=== PATIENT | female | born 1960 | race Caucasian/White ===

== ENCOUNTER 2020-01-20 13:12 | Emergency (ER) | payer BC, OTHER, SELFPAY ==
[2020-01-20 13:50] VITALS: BP 160/81; PULSE 100; RESP 18; TEMP 36.8; O2SAT 98; BMI 28.7
--- NOTE | 2020-01-20 14:14 | ED.HA ---
HPI - Headache General Chief Complaint: Headache Stated Complaint: Migraine Time Seen by Provider: 01/20/20 14:14 Source: patient Mode of arrival: ambulatory Limitations: no limitations History of Present Illness HPI Narrative: 59-year-old female with history of eosinophilic fasciitis, vulvar lichen sclerosus and surgical history of radical nephrectomy on left side, bladder up lift, hip replacement, tubal ligation who is currently receiving IVIG for eosinophilic fasciitis being followed by Dr. Rich at and since she has been getting the IV IG she over the past 4 months has been experiencing headaches about 2-3 days after receiving IVIG and will get intermittent episodes she was prescribed sumatriptan for this but most the time she reports that does not work. States this episode is a gradual-onset had her IV IG about 4 days ago and started experiencing the headache yesterday described as pressure-like diffuse similar to her previous. No sudden or thunderclap headache. Actually this is not the worst episode she has had she had a debilitating headache back in September she reports. States this is not as worse but just exhausted we getting headaches after IVIG and at this point is reconsidering getting IVIG anymore. She denies any fever or chills. No neck pain. No vision changes. No lightheadedness or dizziness. MD elicited complaint: headache Onset (ago): day(s) Onset description: gradually Location: diffuse Severity: moderate Quality & Timing: aching Exacerbating factors: none Relieving factors: nothing Context: occurred at rest Treatments prior to arrival: other ( Sometimes the sumatriptan will work) Related Data Allergies Allergy/AdvReac Type Severity Reaction Status Date / Time codeine [CODEINE] Allergy Unknown Unknown Verified 01/20/20 14:29 Review of Systems Review of Systems: Constitutional: No Weight loss, No Fever, No Chills, No Night Sweats, No Fatigue, No Malaise ENT/Mouth: No Hearing loss, No Ear Pain, No Nasal Congestion, No Sinus Pain, No Hoarseness, No sore throat, No Rhinorrhea, No Swallowing Difficulty Eyes: No Eye Pain, No Swelling, No Redness, No Foreign Body, No Discharge, No Vision Changes Cardiovascular: No Chest Pain, No SOB, No Dyspnea on Exertion, No Orthopnea, No Edema, No Palpitations Respiratory: No Cough, No Sputum, No Wheezing, No Dyspnea Gastrointestinal: No Nausea, No Vomiting, No Diarrhea, No Constipation, No abdominal Pain, No Hematochezia, No Melena Genitourinary: no irregular bleeding, No Dysuria, No Urinary Frequency, No Hematuria, No Urinary Incontinence, No Urgency, No Flank Pain, No Urinary Flow Changes, No Hesitancy Musculoskeletal: No joint pain, No Myalgias, No Joint Swelling Skin: No Skin Lesions, No rash Neuro: No Weakness, No Numbness, No Paresthesias, No Loss of Consciousness, No Dizziness, + DUBOSE as noted Psych: No Anxiety/Panic, No Depression Heme/Lymph: No Bruising, No Bleeding,No Lymphadenopathy Endocrine: No Polyuria, No Polydipsia, No Temperature Intolerance Yes all other systems are reviewed and are negative [facility] Past Medical History Attestation statement: The following information was validated with the patient. Medical History Eosinophilic fasciitis Vulval intraepithelial neoplasia with lichen sclerosus Surgical History History of bladder suspension procedure History of hip replacement History of nephrectomy Social History Social History Alcohol intake: never Smoking Status: Never smoker Use of substances other than those prescribed or required for medical reasons: No Advance Directives: No Advance Directives Information Provided: Yes Physical Exam Vital Signs: Vital Signs: Last Vital Signs Temp 98.2 F 01/20/20 14:52 Pulse 91 01/20/20 14:52 Resp 18 01/20/20 14:52 BP 139/76 01/20/20 14:52 Pulse Ox 96 01/20/20 14:52 Body Mass Index 28.7 Reviewed Const: General: cooperative and healthy appearing; No acute distress or intoxicated appearing Nutritional Appearance: average body habitus Orientation/consciousness: patient oriented x3 HENMT: Head: Yes normal to inspection Ears: hearing grossly normal bilaterally Eyes: General: appearance normal, both eyes and all related structures Visual Valerio: normal visual valerio by confrontation Neck: Neck: Yes normal visual inspection, No positive Brudzinski's sign, No positive Kernig's sign and No tender Thyroid: Thyroid normal Chest: Chest palpation & inspection: normal inspection of the chest Resp: Effort & Inspection: normal respiratory effort Cardio: Jugular venous distension: no JVD GI: Inspection: Yes normal to inspection Percussion: Yes normal to percussion Auscultation: normal bowel sounds : General: Yes no CVA tenderness Back/Spine/Pelvis: Back: no CVA tenderness Skin: General skin exam: no rashes or lesions noted Neuro: Other: negative on stroke scale NIH score 0 General: patient oriented x3 Cranial nerves: Yes CN's II-XII intact bilaterally Cognition (Neuro): normal cognition Gait exam (Neuro): Normal gait present Motor exam (neuro): 5/5 motor strength present throughout Left pupil size: 0.79 in Right pupil size: 0.79 in Extrem: General: Yes normal to inspection Course Course Course Narrative: 1630 feels much better states her headache has fully resolved She was able to sleep in the ED. No headache at this time. Smiling and thankful. She has been on her phone for last few minutes. Out of bed ambulatory status with gait. Patient will be discharged with clear return follow-up instructions. Stable for discharge MDM - Headache MDM Narrative Medical decision making narrative: patient likely spacing common side effects of IVIG has been happening ever since IV IG and September prior to that she was doing well with that but now every time she gets IVIG she will experience a headache about 3 days later which is typical for today's visit and today's visit is not the worst ever. She is able to smile while presenting history to me does not appear toxic. Hemodynamically stable. At this time will check basic labs and treat with IV fluids, IV Benadryl and Reglan / Toradol. Differential Diagnosis Differential diagnosis: Likely migraine, tension headache and headache; Unlikely subarachnoid hemorrhage, meningitis, sinusitis and postconcussion syndrome Lab Data Result diagrams: 01/20/20 14:22 01/20/20 14:22 Labs: Lab Results 01/20/20 01/20/20 01/20/20 Range/Units 14:22 14:22 14:37 WBC 6.4 (4.8-10.8) X10*3/uL RBC 4.09 L (4.20-5.50) X10*6/uL Hgb 12.2 (12.0-16.0) g/dl Hct 36.2 L (37-47) % MCV 88.5 (80-98) fL MCH 29.8 (27.0-33.0) pg MCHC 33.7 (31.0-35.0) g/dl RDW 12.8 (11.0-16.0) % Plt Count 247 (160-400) X10*3/uL MPV 9.2 L (9.4-12.3) fL Immature Gran % (Auto) 0.2 (0.0-0.4) % Neut % (Auto) 75.2 H (45-73) % Lymph % (Auto) 15.0 L (20-40) % [place] % (Auto) 8.9 (2-11) % Eos % (Auto) 0.2 (0-4) % Baso % (Auto) 0.5 (0-2) % Lymph # (Auto) 1.0 L (1.2-4.9) X10*3/uL [place] # (Auto) 0.6 (0.1-1.2) X10*3/uL Eos # (Auto) 0.0 (0.0-0.4) X10*3/uL Baso # (Auto) 0.0 (0.0-0.2) X10*3/uL Abs Immat Gran (auto) 0.01 (0.00-0.03) X10*3/uL Absolute Neuts (auto) 4.8 (2.0-8.3) X10*3/uL Absolute Nucleated RBC 0.000 (0.0-0.012) X10*3/uL Nucleated RBC % (auto) 0.0 (0.0-0.2) /100WBC Sodium 133 L (135-145) mmol/L Potassium 3.9 (3.3-5.1) mmol/l Chloride 101 (96-108) mmol/L Carbon Dioxide 22 (22-29) mmol/L Anion Gap 14 (12-20) BUN 9 (9-16) mg/dL Creatinine 0.62 (0.5-1.4) mg/dL Estim Creat Clear Calc 91.5 Estimated GFR > 60 Random Glucose 108 (60-115) mg/dL Calcium 9.3 (8.4-10.2) mg/dL Total Bilirubin 0.7 (0.0-1.0) mg/dL AST 19 (5-31) U/L ALT 17 (0-31) U/L Alkaline Phosphatase 65 (39-117) U/L Total Protein 9.0 H (6.5-8.0) g/dL Albumin 4.2 (3.5-5.0) g/dL Urine Color STRAW Urine Appearance CLEAR Urine pH 7.0 (5.0-8.0) Ur Specific [place] <= 1.005 (1.005-1.025) Urine Protein NEG (NEG-TRACE) MG/DL Urine Glucose (UA) NEG (NEG) MG/DL Urine Ketones NEG (NEG) MG/DL Urine Blood TRACE (NEG) Urine Nitrite NEG (NEG) Ur Leukocyte Esterase NEG (NEG) Urine RBC 0-2 (0) /HPF Urine WBC 0 (0-4) /HPF Ur Squamous Epith Cells NONE /LPF Urine Bacteria NONE /LPF Discharge Plan Discharge Clinical Impression: Headache Qualifiers: Headache type: tension-type Headache chronicity pattern: chronic headache Intractability: not intractable Qualified Code(s): G44.229 - Chronic tension-type headache, not intractable Patient Disposition: Home, Self-Care Instructions: Acute Headache (ED) Additional Instructions: please follow-up outpatient as discussed Return if any concerns or worsening symptoms Thank you Referrals: Oswaldo Lynch MD [Primary Care Provider] - 3 days
[2020-01-20 14:28] LABS: Basophils Percent Auto 0.5 % (0-2); Eosinophils Percent Auto 0.2 % (0-4); Hematocrit 36.2 % (37-47); Hemoglobin 12.2 g/dl (12.0-16.0); Imm Gran Abs Auto 0.01 X10*3/uL (0.00-0.03); Imm Gran Pct Auto 0.2 % (0.0-0.4); Mean Corpuscular HGB Conc 33.7 g/dl (31.0-35.0); Mean Corpuscular Hemoglobin 29.8 pg (27.0-33.0); Mean Corpuscular Volume 88.5 fL (80-98); Mean Platelet Volume 9.2 fL (9.4-12.3); Monocytes Absolute Auto 0.6 X10*3/uL (0.1-1.2); Monocytes Percent Auto 8.9 % (2-11); Neutrophils Absolute Auto 4.8 X10*3/uL (2.0-8.3); Neutrophils Percent Auto 75.2 % (45-73); Platelet Count 247 X10*3/uL (160-400); Red Blood Count 4.09 X10*6/uL (4.20-5.50); Red Cell Distribution Width 12.8 % (11.0-16.0); White Blood Count 6.4 X10*3/uL (4.8-10.8)
[2020-01-20 14:29] LABS: MANUAL DIFF FLAG NO
[2020-01-20] MEDS: Ketorolac Tromethamine 30 MG/ML VIAL IVPUSH (14:30)
[2020-01-20] MEDS: diphenhydrAMINE HCL 50 MG/ML VIAL IVPUSH (14:30)
[2020-01-20] MEDS: 0.9 % Sodium Chloride 1,000 ML 1000 ML IV (14:30)
[2020-01-20] MEDS: Metoclopramide HCl 10 MG/2 ML VIAL IVPUSH (14:30)
[2020-01-20 14:42] LABS: Glucose Urine UA NEG (NEG); Leukocyte Esterase Urine NEG (NEG); Nitrite Urine NEG (NEG); Specific Gravity - Urine <= 1.005 (1.005-1.025); Urine Blood TRACE (NEG); Urine Ketones NEG (NEG); Urine Protein NEG (NEG-TRACE)
[2020-01-20 14:43] LABS: Appearance Urine CLEAR; Color Urine STRAW
[2020-01-20 14:50] LABS: RBC Urine 0-2 /HPF (0); WBC Urine 0 /HPF (0-4)
[2020-01-20 14:52] VITALS: BP 139/76; PULSE 91; RESP 18; TEMP 36.8; O2SAT 96
[2020-01-20 14:57] LABS: Alanine Aminotransferase 17 U/L (0-31); Albumin Level 4.2 g/dL (3.5-5.0); Alkaline Phosphatase 65 U/L (39-117); Anion Gap 14 (12-20); Aspartate Amino Transferase 19 U/L (5-31); Bilirubin Total 0.7 mg/dL (0.0-1.0); Blood Urea Nitrogen 9 mg/dL (9-16); Calcium 9.3 mg/dL (8.4-10.2); Carbon Dioxide 22 mmol/L (22-29); Chloride 101 mmol/L (96-108); Creatinine Clr Calc Pharmacy 91.5; Estimated Glomerular Filt Rate > 60; Glucose Random 108 mg/dL (60-115); Potassium 3.9 mmol/l (3.3-5.1); Sodium 133 mmol/L (135-145)
--- NOTE | 2020-01-20 15:24 | PC.NURSE ---
introduced self to pt, reporting headache 5/10, with some ongoing nausea. sleeping on arrival into room. speaking in clear full sentences, resp even and nonlaboured. fluids still running. has reached pain goal.
== END 2020-01-20 17:00 | disposition home or self-care (01) ==
PROVIDERS: Nurse Practitioner Primary Care; Emergency Provider Emergency Medicine; PCP Internal Medicine
DX: G44.229 Chronic tension-type headache, not intractable (principal); Z79.899 Other long term (current) drug therapy
CPT/HCPCS: 36415; 80053; 81001; 85025; 96361; 96374; 96375; 99284; J1200; J1885; J2765

== ENCOUNTER 2020-05-22 08:48 | Outpatient (REF) | payer BC, MEDICARE, OTHER, SELFPAY ==
--- NOTE | ~2020-05-22 | XR_ITS ---
EXAMINATION: XR CHEST CLINICAL INFORMATION: Cough COMPARISON: Chest radiographs 07/10/2018, 11/24/2010 TECHNIQUE: 2 views of the chest were obtained. FINDINGS: The lungs are clear. There is no airspace consolidation or groundglass opacity or effusion. The cardiac and hilar and mediastinal contours are stable. Tapering right cardiophrenic angle is consistent with areolar tissue there are mild degenerative changes thoracic spine. XR/XR chest 2V IMPRESSION: Lungs clear. No acute intrathoracic disease.
== END 2020-05-22 08:49 | disposition home or self-care (01) ==
LOC: HO.HMGCX 08:48
PROVIDERS: PCP Internal Medicine; Visit Provider Hospitalist
DX: R05 Cough (principal); Z20.822 Contact with and (suspected) exposure to COVID-19
CPT/HCPCS: 36415; 71046; U0003; U0005

== ENCOUNTER 2020-05-26 09:51 | Emergency (ER) | payer BC, MEDICARE, OTHER, SELFPAY ==
--- NOTE | ~2020-05-26 | US_ITS ---
EXAMINATION: PELVIC ULTRASOUND CLINICAL INFORMATION: Postmenopausal bleeding COMPARISON: None TECHNIQUE: Transabdominal and transvaginal pelvic ultrasound was performed. Transvaginal exam was performed for better visualization of the uterus and ovaries. FINDINGS: The uterus is anteverted and measures 7 x 2.5 x 4.5 cm in dimension. No focal uterine lesion is seen. Endometrial thickness is normal. There is a small amount of fluid seen in the endometrial cavity. Anterior single thickness endometrium measures 1 mm and posterior single thickness endometrium measures 1 mm for double thickness endometrium measuring 2 mm. The ovaries are normal-appearing. The right ovary measures 2 x 0.8 x 1.7 cm and the left ovary measures 0.9 x 1.3 x 1 cm. There is no fluid in the pelvis. US/US pelvic complete IMPRESSION: Unremarkable exam.
--- NOTE | ~2020-05-26 | US_ITS ---
EXAMINATION: PELVIC ULTRASOUND CLINICAL INFORMATION: Postmenopausal bleeding COMPARISON: None TECHNIQUE: Transabdominal and transvaginal pelvic ultrasound was performed. Transvaginal exam was performed for better visualization of the uterus and ovaries. FINDINGS: The uterus is anteverted and measures 7 x 2.5 x 4.5 cm in dimension. No focal uterine lesion is seen. Endometrial thickness is normal. There is a small amount of fluid seen in the endometrial cavity. Anterior single thickness endometrium measures 1 mm and posterior single thickness endometrium measures 1 mm for double thickness endometrium measuring 2 mm. The ovaries are normal-appearing. The right ovary measures 2 x 0.8 x 1.7 cm and the left ovary measures 0.9 x 1.3 x 1 cm. There is no fluid in the pelvis. US/US transvaginal IMPRESSION: Unremarkable exam.
[2020-05-26 09:52] VITALS: BP 127/64; PULSE 115; RESP 18; TEMP 36.8; O2SAT 98; BMI 28.3
--- NOTE | 2020-05-26 10:33 | ED_ITS ---
HPI - Female Genitourinary General Chief complaint: Vaginal Bleeding Stated complaint: vaginal bleeding Time Seen by Provider: 05/26/20 10:08 Source: patient Mode of arrival: ambulatory Limitations: no limitations History of Present Illness HPI Narrative: 60 y/o female with history of kidney tumor s/p resection 2006, eosinophilic fascitis, with lichen sclerosis on topical treatment who presents to the ED with acute onset of painless vaginal bleeding that started last night. She went through menopause many years ago, approximately age 48. She reports no history of previous vaginal bleeding. She just had her HYDRAULIC DREDGE OPERATOR appointment but no pelvic exam was performed. She reports the bleeding is when she wipes herself. S he denies blood in her urine that she could tell. No rectal bleeding. No abdominal pain, N/V/D, fevers, dysuria, or vaginal discharge. She is not sexually active. MD elicited complaint: vaginal bleeding Pertinent past history: interstitial cystits and other (vulval intraepithelial neoplasia ) Onset (ago): day(s) (1) Location of symptoms: vaginal Severity: moderate Female Urogenital Radiation: Non-Radiating Consistency: intermittent Vaginal bleeding: none Associated symptoms: denies other symptoms Treatment prior to arrival: none Sexual activity: No Patient : No Related Data Home Medications Medication Instructions Recorded Confirmed alprazolam 0.5 mg tablet 0.25 mg PO BID PRN 05/06/20 05/22/20 folic acid 1 mg tablet 5 mg PO DAILY 05/06/20 05/22/20 methotrexate sodium 2.5 mg tablet 15 mg PO QWEEK 05/06/20 05/22/20 mycophenolate mofetil 500 mg tablet 1.5 g PO BID tab 05/06/20 05/22/20 omeprazole 20 mg capsule,delayed 20 mg PO QAM 05/06/20 05/22/20 release Previous Rx's Medication Instructions Recorded ondansetron HCl [Zofran] 4 mg PO Q8H PRN #10 tab 01/20/20 Allergies Allergy/AdvReac Type Severity Reaction Status Date / Time codeine [CODEINE] Allergy Unknown Unknown Verified 05/12/20 08:34 Review of Systems Review of Systems: Constitutional: No Fever, No Chills Cardiovascular: No Chest Pain, No SOB Respiratory: No Cough, No Sputum Gastrointestinal: No Nausea, No Vomiting, No Diarrhea, No abdominal Pain, No Hematochezia, No Melena Genitourinary: No Dysuria, No Urinary Frequency, No Hematuria, +vaginal bleeding Skin: No Skin Lesions, No rash Neuro: No Weakness, No Dizziness Heme/Lymph: No Bruising, No Lymphadenopathy PMF Past Medical History Attestation statement: The following information was validated with the patient. Medical History Eosinophilic fasciitis Vulval intraepithelial neoplasia with lichen sclerosus Surgical History History of bladder suspension procedure History of hip replacement History of nephrectomy Social History Social History Alcohol intake: never Smoking Status: Never smoker Use of substances other than those prescribed or required for medical reasons: No Advance Directives: Yes Advance Directives Information Provided: Yes Advance Directives on File: No Physical Exam Vital Signs: Vital Signs: Last Vital Signs Temp 98.3 F 05/26/20 12:00 Pulse 101 H 05/26/20 12:00 Resp 18 05/26/20 12:00 BP 129/68 05/26/20 12:00 Pulse Ox 98 05/26/20 12:00 Body Mass Index 28.3 Appearance: Alert. Oriented X3. No acute distress. Eyes: Pupils equal, round and reactive to light. ENT: Pharynx normal. Neck: Normal inspection. Neck supple. CVS: Normal heart rate and rhythm. Pulses normal. Respiratory: No respiratory distress. Breath sounds normal. Abdomen: Soft and nontender. +BS x4 Skin: Skin warm and dry. Normal skin color. Normal skin turgor. No rashes. Extremities: No lower extremity edema. Neuro: Oriented X 3. No motor deficit. No sensory deficit. Course Course Course Narrative: 60 y/o female presenting with painless postmenopausal bleeding x1 day. Will get labs and pelvic ultrasound. Reevaluation(s) Reevaluation #1: Pelvic ultrasound is normal. Lab workup is unremarkable. Awaiting UA. Pevlic exam reveal some friable tissue in the vaginal and on vertix at 5 o clock without a notable lesion. Likely due to atrophy? Will refer back to her HYDRAULIC DREDGE OPERATOR for further management. Reevaluation #2: UA is negative. Patient is stable for d/c - she wall call her HYDRAULIC DREDGE OPERATOR this week. MDM - Female Genitourinary Lab Data Result diagrams: 05/26/20 10:36 05/26/20 10:36 Labs: Lab Results 05/26/20 05/26/20 05/26/20 Range/Units 10:36 10:36 10:36 WBC 7.3 (4.8-10.8) X10*3/uL RBC 4.65 (4.20-5.50) X10*6/uL Hgb 13.3 (12.0-16.0) g/dl Hct 42.5 (37-47) % MCV 91.4 (80-98) fL MCH 28.6 (27.0-33.0) pg MCHC 31.3 (31.0-35.0) g/dl RDW 12.5 (11.0-16.0) % Plt Count 238 (160-400) X10*3/uL MPV 9.6 (9.4-12.3) fL Immature Gran % (Auto) 0.3 (0.0-0.4) % Neut % (Auto) 75.3 H (45-73) % Lymph % (Auto) 16.8 L (20-40) % [place] % (Auto) 6.4 (2-11) % Eos % (Auto) 0.8 (0-4) % Baso % (Auto) 0.4 (0-2) % Lymph # (Auto) 1.2 (1.2-4.9) X10*3/uL [place] # (Auto) 0.5 (0.1-1.2) X10*3/uL Eos # (Auto) 0.1 (0.0-0.4) X10*3/uL Baso # (Auto) 0.0 (0.0-0.2) X10*3/uL Abs Immat Gran (auto) 0.02 (0.00-0.03) X10*3/uL Absolute Neuts (auto) 5.5 (2.0-8.3) X10*3/uL Absolute Nucleated RBC 0.000 (0.0-0.012) X10*3/uL Nucleated RBC % (auto) 0.0 (0.0-0.2) /100WBC Hold Blue Top SEE NOTE Sodium 142 (135-145) mmol/L Potassium 4.8 (3.3-5.1) mmol/L Chloride 108 (96-108) mmol/L Carbon Dioxide 24 (22-29) mmol/L Anion Gap 15 (12-20) BUN 11 (9-16) mg/dL Creatinine 0.65 (0.5-1.4) mg/dL Estim Creat Clear Calc 85.6 Estimated GFR > 60 Random Glucose 105 (60-115) mg/dL Calcium 9.3 (8.4-10.2) mg/dL Urine Color Urine Appearance Urine pH (5.0-8.0) Ur Specific [place] (1.005-1.025) Urine Protein (NEG-TRACE) MG/DL Urine Glucose (UA) (NEG) MG/DL Urine Ketones (NEG) MG/DL Urine Blood (NEG) Urine Nitrite (NEG) Ur Leukocyte Esterase (NEG) Urine RBC (0) /HPF Urine WBC (0-4) /HPF Ur Squamous Epith Cells /LPF Urine Bacteria /LPF 05/26/20 Range/Units 11:58 WBC (4.8-10.8) X10*3/uL RBC (4.20-5.50) X10*6/uL Hgb (12.0-16.0) g/dl Hct (37-47) % MCV (80-98) fL MCH (27.0-33.0) pg MCHC (31.0-35.0) g/dl RDW (11.0-16.0) % Plt Count (160-400) X10*3/uL MPV (9.4-12.3) fL Immature Gran % (Auto) (0.0-0.4) % Neut % (Auto) (45-73) % Lymph % (Auto) (20-40) % [place] % (Auto) (2-11) % Eos % (Auto) (0-4) % Baso % (Auto) (0-2) % Lymph # (Auto) (1.2-4.9) X10*3/uL [place] # (Auto) (0.1-1.2) X10*3/uL Eos # (Auto) (0.0-0.4) X10*3/uL Baso # (Auto) (0.0-0.2) X10*3/uL Abs Immat Gran (auto) (0.00-0.03) X10*3/uL Absolute Neuts (auto) (2.0-8.3) X10*3/uL Absolute Nucleated RBC (0.0-0.012) X10*3/uL Nucleated RBC % (auto) (0.0-0.2) /100WBC Hold Blue Top Sodium (135-145) mmol/L Potassium (3.3-5.1) mmol/L Chloride (96-108) mmol/L Carbon Dioxide (22-29) mmol/L Anion Gap (12-20) BUN (9-16) mg/dL Creatinine (0.5-1.4) mg/dL Estim Creat Clear Calc Estimated GFR Random Glucose (60-115) mg/dL Calcium (8.4-10.2) mg/dL Urine Color STRAW Urine Appearance CLEAR Urine pH 6.0 (5.0-8.0) Ur Specific [place] <= 1.005 (1.005-1.025) Urine Protein NEG (NEG-TRACE) MG/DL Urine Glucose (UA) NEG (NEG) MG/DL Urine Ketones NEG (NEG) MG/DL Urine Blood TRACE (NEG) Urine Nitrite NEG (NEG) Ur Leukocyte Esterase TRACE H (NEG) Urine RBC 0-2 (0) /HPF Urine WBC 0-2 (0-4) /HPF Ur Squamous Epith Cells TRACE /LPF Urine Bacteria NONE /LPF Critical Care Time Critical Care Time Critical Care Time: No Discharge Plan Discharge Clinical Impression: Vaginal bleeding Patient Disposition: Home, Self-Care Instructions: Vaginal Atrophy (ED) Additional Instructions: Your pelvic ultrasound today was normal. Your exam revealed some minor vaginal bleeding, like due to friable tissue. Recommend followup with your Billposting Supervisor this week. If you develop worsening bleeding, abdominal pain or any other concerning symptom come back to the ER for further evaluation. Prescriptions: No Action ondansetron HCl [Zofran] 4 mg tablet 4 mg PO Q8H PRN (Reason: nausea and vomiting) Qty: 10 RF: 0 omeprazole 20 mg capsule,delayed release(DR/EC) 20 mg PO QAM RF: 0 folic acid 1 mg tablet 5 mg PO DAILY RF: 0 alprazolam 0.5 mg tablet 0.25 mg PO BID PRNRF: 0 methotrexate sodium 2.5 mg tablet 15 mg PO QWEEK RF: 0 mycophenolate mofetil [CellCept] 500 mg tablet 1.5 g PO BID RF: 0 Interventions: ED Discharge Assessment Last Done: 05/26/20 12:41 Discharge Date/Time: 05/26/20 12:42
[2020-05-26 10:40] LABS: MANUAL DIFF FLAG NO
[2020-05-26 10:46] LABS: Basophils Percent Auto 0.4 % (0-2); Eosinophils Absolute Auto 0.1 X10*3/uL (0.0-0.4); Eosinophils Percent Auto 0.8 % (0-4); Hematocrit 42.5 % (37-47); Hemoglobin 13.3 g/dl (12.0-16.0); Imm Gran Abs Auto 0.02 X10*3/uL (0.00-0.03); Imm Gran Pct Auto 0.3 % (0.0-0.4); Lymphocytes Absolute Auto 1.2 X10*3/uL (1.2-4.9); Lymphocytes Percent Auto 16.8 % (20-40); Mean Corpuscular HGB Conc 31.3 g/dl (31.0-35.0); Mean Corpuscular Hemoglobin 28.6 pg (27.0-33.0); Mean Corpuscular Volume 91.4 fL (80-98); Mean Platelet Volume 9.6 fL (9.4-12.3); Monocytes Absolute Auto 0.5 X10*3/uL (0.1-1.2); Monocytes Percent Auto 6.4 % (2-11); Neutrophils Absolute Auto 5.5 X10*3/uL (2.0-8.3); Neutrophils Percent Auto 75.3 % (45-73); Platelet Count 238 X10*3/uL (160-400); Red Blood Count 4.65 X10*6/uL (4.20-5.50); Red Cell Distribution Width 12.5 % (11.0-16.0); White Blood Count 7.3 X10*3/uL (4.8-10.8)
[2020-05-26 11:09] LABS: Anion Gap 15 (12-20); Blood Urea Nitrogen 11 mg/dL (9-16); Calcium 9.3 mg/dL (8.4-10.2); Carbon Dioxide 24 mmol/L (22-29); Chloride 108 mmol/L (96-108); Creatinine Clr Calc Pharmacy 85.6; Estimated Glomerular Filt Rate > 60; Glucose Random 105 mg/dL (60-115); Potassium 4.8 mmol/L (3.3-5.1); Sodium 142 mmol/L (135-145)
[2020-05-26 12:00] VITALS: BP 129/68; PULSE 101; RESP 18; TEMP 36.8; O2SAT 98
[2020-05-26 12:11] LABS: Appearance Urine CLEAR; Color Urine STRAW; Glucose Urine UA NEG (NEG); Leukocyte Esterase Urine TRACE (NEG); Nitrite Urine NEG (NEG); Specific Gravity - Urine <= 1.005 (1.005-1.025); UACC Culture Trigger YES; Urine Blood TRACE (NEG); Urine Ketones NEG (NEG); Urine Protein NEG (NEG-TRACE)
[2020-05-26 12:20] LABS: RBC Urine 0-2 /HPF (0); Squamous Epithelial Cell Urine TRACE /LPF; WBC Urine 0-2 /HPF (0-4)
== END 2020-05-26 12:42 | disposition home or self-care (01) ==
PROVIDERS: Physician Assistant; Emergency Provider Emergency Medicine; PCP Internal Medicine
DX: N93.9 Abnormal uterine and vaginal bleeding, unspecified (principal)
CPT/HCPCS: 36415; 76830; 76856; 80048; 81001; 81003; 85025; 87086; 99284

== ENCOUNTER 2020-05-31 13:09 | Emergency (ER) | payer BC, MEDICARE, SELFPAY ==
--- NOTE | ~2020-05-31 | CT_ITS ---
EXAMINATION: CT ABDOMEN AND PELVIS WITHOUT CONTRAST CLINICAL INFORMATION: Right-sided pain with diarrhea COMPARISON: December 12, 2006 TECHNIQUE: Multidetector volumetric imaging was performed from the superior aspect of the liver through the pubic symphysis. Sagittal and coronal reformatted images were obtained on the technologist's workstation. This CT examination was performed using dose optimization techniques as appropriate, variously including the following: *Automated exposure control *Adjustment of mA and/or kV according to patient size (this includes techniques or standardized protocols for targeted exams where dose is matched to indication/reason for exam; i.e. extremities or head) *Use of iterative reconstruction technique DLP: 678 mGy-cm FINDINGS: LUNG BASES: The visualized lung bases are unremarkable. There are linear scar seen about the lung bases bilaterally. No pleural or pericardial effusion. LIVER, GALLBLADDER, AND BILIARY TREE: The liver is normal in size, shape, and attenuation. No focal hepatic lesion or biliary ductal dilatation is present. The gallbladder is unremarkable with no evidence of radiopaque gallstones, gallbladder wall thickening, or obvious pericholecystic inflammatory changes. PANCREAS: The body and tail of the pancreas appear unremarkable. Just inferior to the head of the pancreas there is a low-density region with some question edematous change within the fat but which is also in contact with the first and second portions of the duodenum. The above finding could possibly related to acute pancreatitis involving the pancreatic head or possible inflammatory change adjacent to the duodenum such as ulcer. A slightly this region may be related to a pancreatic head mass. SPLEEN: Unremarkable. ADRENAL GLANDS: Unremarkable. KIDNEYS AND URETERS: The right kidney is normal in size, shape, and attenuation. No hydronephrosis, hydroureter, or calculi seen. No perinephric stranding. A small calcification is seen about the right renal pelvis but which appears to be vascular in nature. Patient is status post left nephrectomy. BLADDER: Unremarkable. GASTROINTESTINAL TRACT: No dilated loops of large or small bowel. No free air or free fluid. Calcified mesenteric lymph node. There is sigmoid diverticulosis without evidence of acute diverticulitis. No pericolonic inflammatory change. The appendix appears unremarkable. ABDOMINAL WALL: There is a fat-containing umbilical hernia with width of the neck of hernia measuring 1.8 cm. LYMPH NODES: No lymphadenopathy. VASCULAR: No significant abnormality. Mild aortoiliac plaque. PELVIC VISCERA: No significant abnormality. OSSEOUS STRUCTURES: Patient is status post bilateral total hip arthroplasties. Artifact is seen about the pelvis limiting evaluation. There is multilevel degenerative disc cc and throughout the lumbar spine. CT/CT abdomen pelvis wo con IMPRESSION: Inflammatory change involving the region of the pancreatic head adjacent to the first and second portions of the duodenum. This is likely related to acute focal pancreatitis and less likely possible duodenitis or ulcer disease. Status post left nephrectomy. Fat-containing umbilical hernia.
[2020-05-31 13:25] VITALS: BP 131/72; PULSE 97; RESP 18; TEMP 36.7; O2SAT 96; BMI 28.1
--- NOTE | 2020-05-31 13:27 | ED.ABDPAIN ---
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 Pt was evaluated in this ED on 05/22 with acute onset of painless vaginal bleeding x5d, pelvic ultrasound and pelvic exam which showed friable tissue on the cervix, likely atrophy. UA was negative. Pt was also having pain in her right-sided low back as well as suprapubic pain, diarrhea x3 days but she thinks that is because she is so nervous and upset. Then, on 05/29 she went to Urgent care with complaints of diarrhea x5 days. At , she stated she has called her PCP, her GI doctor, her OBGYN doctor, her urologist and her EF Doctor and keeps getting told to call a different doctor and is getting nowhere and she is very stressed out. An abdominal CT scan was ordered but it was never done because the insurance company has not approved it. Today, she states she is feeling dehydrated, has continued watery, non bloody, mucus or black diarrhea and right sided pain which radiates to her abdomen. She describes the pain as a dull crampy pain. She denies nausea vomiting fevers, recent travel or COVID exposures. Related Data Home Medications Medication Instructions Recorded Confirmed alprazolam 0.5 mg tablet 0.25 mg PO BID PRN 05/06/20 05/22/20 folic acid 1 mg tablet 5 mg PO DAILY 05/06/20 05/22/20 methotrexate sodium 2.5 mg tablet 15 mg PO QWEEK 05/06/20 05/22/20 mycophenolate mofetil 500 mg tablet 1.5 g PO BID tab 05/06/20 05/22/20 omeprazole 20 mg capsule,delayed 20 mg PO QAM 05/06/20 05/22/20 release Previous Rx's Medication Instructions Recorded ondansetron HCl [Zofran] 4 mg PO Q8H PRN #10 tab 01/20/20 Allergies Allergy/AdvReac Type Severity Reaction Status Date / Time codeine [CODEINE] Allergy Unknown Unknown Verified 05/29/20 12:11 Review of Systems Review of Systems Yes all other systems are reviewed and are negative Physical Exam Vital Signs: Vital Signs: Last Vital Signs Temp 98.1 F 05/31/20 13:25 Pulse 97 05/31/20 13:25 Resp 18 05/31/20 13:25 BP 131/72 05/31/20 13:25 Pulse Ox 96 05/31/20 13:25 Body Mass Index 28.1 Const: General: cooperative, healthy appearing, comfortable and no acute distress Nutritional Appearance: well nourished Orientation/consciousness: patient oriented x3 HENMT: Head: Yes normal to inspection and Yes atraumatic Eyes: General: appearance normal, both eyes and all related structures Neck: Neck: Yes normal visual inspection, Yes full ROM and Yes supple Resp: Effort & Inspection: normal respiratory effort and able to speak in complete sentences Auscultation: clear to auscultation bilaterally Cardio: Rate: regular rate Rhythm: regular rhythm GI: Inspection: Yes obesity Palpation (GI): Soft to palpation and Tenderness to palpation present (GI) in the RLQ and in the RUQ; Faye's sign negative Auscultation: Hyperactive bowel sounds present : General: No no CVA tenderness Back/Spine/Pelvis: Back: No no CVA tenderness, No erythema, No warmth, No ecchymosis and No back tenderness Skin: General skin exam: no rashes or lesions noted Neuro: General: patient oriented x3 Extrem: General: Yes normal to inspection and Yes no pedal edema Psych: Appearance: grossly normal Course Course Course Narrative: anthony with history of kidney tumor s/p resection 2006, eosinophilic fascitis, with lichen sclerosis on topical treatment who presents to the ED with 7 days of diarrhea. She was evaluated in this ED on 05/26 and had a chest x-ray which was negative and a pelvic and transvaginal ultrasound which only showed friable tissue on the cervix. Bleeding has been scant and patient has had 1 week of diarrhea. Will order labs, EKG, CXR, 1L LR and abd CT scan. Reevaluation(s) Reevaluation #1: Patient's abdominal CT scan showed pancreatitis or duodenitis or ulcer disease, lipase was negative and patient has diarrhea so more likely duodenitis. Could also be side effect of immunosuppresive meds, methotrexate and CellCept. pt will discuss with EF doc to see if she can lower doses. Patient can tolerate p.o. and is not dehydrated, states she feels much better since we gave her 1 L of LR. Labs all WNL. Advised close follow-up with her GI doctor at [facility] with an appt she already has for 4 days from now. Cannot give patient CT scan on CD because the machine is broken. Advised patient to call Radiology on Tuesday to sheepskin pickler a copy to bring to her GI doctor. Patient understands and agrees with plan. Answered all of patient's questions. Time: 16:05 MDM - Abdominal Pain Differential Diagnosis Differential diagnosis: Likely abdominal pain, acute appendicitis, calculus of kidney, diverticulitis and gastroenteritis Medical Records Attestation: I reviewed the patient's medical records. Lab Data Result diagrams: 05/31/20 13:52 05/31/20 13:52 Labs: Lab Results 05/31/20 05/31/20 05/31/20 Range/Units 13:52 13:52 13:52 WBC 6.2 (4.8-10.8) X10*3/uL RBC 4.76 (4.20-5.50) X10*6/uL Hgb 13.9 (12.0-16.0) g/dl Hct 42.5 (37-47) % MCV 89.3 (80-98) fL MCH 29.2 (27.0-33.0) pg MCHC 32.7 (31.0-35.0) g/dl RDW 12.6 (11.0-16.0) % Plt Count 245 (160-400) X10*3/uL MPV 9.7 (9.4-12.3) fL Immature Gran % (Auto) 0.3 (0.0-0.4) % Neut % (Auto) 64.7 (45-73) % Lymph % (Auto) 25.0 (20-40) % Lyman % (Auto) 7.4 (2-11) % Eos % (Auto) 2.1 (0-4) % Baso % (Auto) 0.5 (0-2) % Lymph # (Auto) 1.6 (1.2-4.9) X10*3/uL Lyman # (Auto) 0.5 (0.1-1.2) X10*3/uL Eos # (Auto) 0.1 (0.0-0.4) X10*3/uL Baso # (Auto) 0.0 (0.0-0.2) X10*3/uL Abs Immat Gran (auto) 0.02 (0.00-0.03) X10*3/uL Absolute Neuts (auto) 4.0 (2.0-8.3) X10*3/uL Absolute Nucleated RBC 0.000 (0.0-0.012) X10*3/uL Nucleated RBC % (auto) 0.0 (0.0-0.2) /100WBC Sodium 142 (135-145) mmol/L Potassium 4.3 (3.3-5.1) mmol/L Chloride 107 (96-108) mmol/L Carbon Dioxide 26 (22-29) mmol/L Anion Gap 13 (12-20) BUN 13 (9-16) mg/dL Creatinine 0.64 (0.5-1.4) mg/dL Estim Creat Clear Calc 86.7 Estimated GFR > 60 Random Glucose 97 (60-115) mg/dL Calcium 9.6 (8.4-10.2) mg/dL Total Bilirubin 0.4 (0.0-1.0) mg/dL Direct Bilirubin < 0.2 (0.0-0.5) mg/dL AST 18 (5-31) U/L ALT 13 (0-31) U/L Alkaline Phosphatase 108 D (39-117) U/L Troponin I High Sens < 3.5 (<3.5-17.0) ng/L Total Protein 7.2 (6.5-8.0) g/dL Albumin 4.7 (3.5-5.0) g/dL Lipase 34 (8-78) U/L COVID-19 ([facility]) (Negative) COVID-19 Clin Com 05/31/20 Range/Units 15:31 WBC (4.8-10.8) X10*3/uL RBC (4.20-5.50) X10*6/uL Hgb (12.0-16.0) g/dl Hct (37-47) % MCV (80-98) fL MCH (27.0-33.0) pg MCHC (31.0-35.0) g/dl RDW (11.0-16.0) % Plt Count (160-400) X10*3/uL MPV (9.4-12.3) fL Immature Gran % (Auto) (0.0-0.4) % Neut % (Auto) (45-73) % Lymph % (Auto) (20-40) % Lyman % (Auto) (2-11) % Eos % (Auto) (0-4) % Baso % (Auto) (0-2) % Lymph # (Auto) (1.2-4.9) X10*3/uL Lyman # (Auto) (0.1-1.2) X10*3/uL Eos # (Auto) (0.0-0.4) X10*3/uL Baso # (Auto) (0.0-0.2) X10*3/uL Abs Immat Gran (auto) (0.00-0.03) X10*3/uL Absolute Neuts (auto) (2.0-8.3) X10*3/uL Absolute Nucleated RBC (0.0-0.012) X10*3/uL Nucleated RBC % (auto) (0.0-0.2) /100WBC Sodium (135-145) mmol/L Potassium (3.3-5.1) mmol/L Chloride (96-108) mmol/L Carbon Dioxide (22-29) mmol/L Anion Gap (12-20) BUN (9-16) mg/dL Creatinine (0.5-1.4) mg/dL Estim Creat Clear Calc Estimated GFR Random Glucose (60-115) mg/dL Calcium (8.4-10.2) mg/dL Total Bilirubin (0.0-1.0) mg/dL Direct Bilirubin (0.0-0.5) mg/dL AST (5-31) U/L ALT (0-31) U/L Alkaline Phosphatase (39-117) U/L Troponin I High Sens (<3.5-17.0) ng/L Total Protein (6.5-8.0) g/dL Albumin (3.5-5.0) g/dL Lipase (8-78) U/L COVID-19 ([facility]) Negative (Negative) COVID-19 Clin Com See Note Imaging Data CT scan - abdomen: Attestation: I personally reviewed and interpreted this imaging study as follows: My impression: likely acute focal pancreatitis and less likely possible duodenitis or ulcer disease Radiologist's impression: [address] [id number] Scan ReportSigned Patient: Radha Chung MMR#: [id number]: 9Acct:[id number]/Sex: 60 / FADM Date: 05/31/20Loc: HO.EDAttending Dr: Ordering Physician: Chaparrita Owen PA-C Date of Service: 05/31/20 Procedure(s): CT abdomen pelvis wo con Accession Number(s): [id number] cc: Chaparrita Owen PA-C~ EXAMINATION: CT ABDOMEN AND PELVIS WITHOUT CONTRAST CLINICAL INFORMATION: Right-sided pain with diarrhea COMPARISON: December 12, 2006 TECHNIQUE: Multidetector volumetric imaging was performed from the superior aspect of the liver through the pubic symphysis. Sagittal and coronal reformatted images were obtained on the technologist's workstation. This CT examination was performed using dose optimization techniques as appropriate, variously including the following: *Automated exposure control *Adjustment of mA and/or kV according to patient size (this includes techniques or standardized protocols for targeted exams where dose is matched to indication/reason for exam; i.e. extremities or head) *Use of iterative reconstruction technique DLP: 678 mGy-cm FINDINGS: LUNG BASES: The visualized lung bases are unremarkable. There are linear scar seen about the lung bases bilaterally. No pleural or pericardial effusion. LIVER, GALLBLADDER, AND BILIARY TREE: The liver is normal in size, shape, and attenuation. No focal hepatic lesion or biliary ductal dilatation is present. The gallbladder is unremarkable with no evidence of radiopaque gallstones, gallbladder wall thickening, or obvious pericholecystic inflammatory changes. PANCREAS: The body and tail of the pancreas appear unremarkable. Just inferior to the head of the pancreas there is a low-density region with some question edematous change within the fat but which is also in contact with the first and second portions of the duodenum. The above finding could possibly related to acute pancreatitis involving the pancreatic head or possible inflammatory change adjacent to the duodenum such as ulcer. A slightly this region may be related to a pancreatic head mass. SPLEEN: Unremarkable. ADRENAL GLANDS: Unremarkable. KIDNEYS AND URETERS: The right kidney is normal in size, shape, and attenuation. No hydronephrosis, hydroureter, or calculi seen. No perinephric stranding. A small calcification is seen about the right renal pelvis but which appears to be vascular in nature. Patient is status post left nephrectomy. BLADDER: Unremarkable. GASTROINTESTINAL TRACT: No dilated loops of large or small bowel. No free air or free fluid. Calcified mesenteric lymph node. There is sigmoid diverticulosis without evidence of acute diverticulitis. No pericolonic inflammatory change. The appendix appears unremarkable. ABDOMINAL WALL: There is a fat-containing umbilical hernia with width of the neck of hernia measuring 1.8 cm. LYMPH NODES: No lymphadenopathy. VASCULAR: No significant abnormality. Mild aortoiliac plaque. PELVIC VISCERA: No significant abnormality. OSSEOUS STRUCTURES: Patient is status post bilateral total hip arthroplasties. Artifact is seen about the pelvis limiting evaluation. There is multilevel degenerative disc cc and throughout the lumbar spine. CT/CT abdomen pelvis wo con IMPRESSION: Inflammatory change involving the region of the pancreatic head adjacent to the first and second portions of the duodenum. This is likely related to acute focal pancreatitis and less likely possible duodenitis or ulcer disease. Status post left nephrectomy. Fat-containing umbilical hernia. Dictated By:PARAMJIT HUAigned By:<Electronically signed by PARAMJIT HUA MD in [place]>05/31/20 1520 DD/ 1335TD/TT: Chemist Instrumentation: Discharge Plan Discharge Clinical Impression: Acute duodenitis Diarrhea Qualifiers: Diarrhea type: unspecified type Qualified Code(s): R19.7 - Diarrhea, unspecified Patient Disposition: Home, Self-Care Instructions: Duodenitis (ED) Additional Instructions: As discussed, please be sure to follow-up with your GI doctor at [facility]. You may obtain a copy of your abdominal and pelvic CT scan from Radiology on Tuesday. Your COVID test was negative today. Please be sure to stay well hydrated. Please return to the emergency department if you have bloody or black diarrhea, are unable to keep down liquids or have a fever you cannot control with Tylenol or Motrin. Prescriptions: No Action ondansetron HCl [Zofran] 4 mg tablet 4 mg PO Q8H PRN (Reason: nausea and vomiting) Qty: 10 RF: 0 omeprazole 20 mg capsule,delayed release(DR/EC) 20 mg PO QAM RF: 0 folic acid 1 mg tablet 5 mg PO DAILY RF: 0 alprazolam 0.5 mg tablet 0.25 mg PO BID PRNRF: 0 methotrexate sodium 2.5 mg tablet 15 mg PO QWEEK RF: 0 mycophenolate mofetil [CellCept] 500 mg tablet 1.5 g PO BID RF: 0 Interventions: ED Discharge Assessment Last Done: 05/31/20 16:42 Discharge Date/Time: 05/31/20 16:48 [facility] Past Medical History Medical History Eosinophilic fasciitis Vulval intraepithelial neoplasia with lichen sclerosus Surgical History History of bladder suspension procedure History of hip replacement History of nephrectomy Social History Social History Alcohol intake: never Smoking Status: Never smoker Use of substances other than those prescribed or required for medical reasons: No Advance Directives: No Advance Directives Information Provided: No
--- NOTE | 2020-05-31 13:37 | ECG_ITS ---
Test Reason : ABD PAIN Blood Pressure : / mmHG Vent. Rate : 092 BPM Atrial Rate : 092 BPM P-R Int : 182 ms QRS Dur : 084 ms QT Int : 376 ms P-R-T Axes : 051 009 015 degrees QTc Int : 464 ms Normal sinus rhythm Possible Left atrial enlargement Possible Inferior infarct , age undetermined Abnormal ECG When compared with ECG of 06-JUL-2010 07:16, Possible Inferior infarct is now Present Referred By: Chaparrita Owen Electronically Signed By:ENEIDA CARRION MD
[2020-05-31] MEDS: Lactated Ringers 1,000 ML 999 ML IV (13:55)
[2020-05-31 13:57] LABS: MANUAL DIFF FLAG NO
[2020-05-31 14:03] LABS: Basophils Percent Auto 0.5 % (0-2); Eosinophils Absolute Auto 0.1 X10*3/uL (0.0-0.4); Eosinophils Percent Auto 2.1 % (0-4); Hematocrit 42.5 % (37-47); Hemoglobin 13.9 g/dl (12.0-16.0); Imm Gran Abs Auto 0.02 X10*3/uL (0.00-0.03); Imm Gran Pct Auto 0.3 % (0.0-0.4); Lymphocytes Absolute Auto 1.6 X10*3/uL (1.2-4.9); Mean Corpuscular HGB Conc 32.7 g/dl (31.0-35.0); Mean Corpuscular Hemoglobin 29.2 pg (27.0-33.0); Mean Corpuscular Volume 89.3 fL (80-98); Mean Platelet Volume 9.7 fL (9.4-12.3); Monocytes Absolute Auto 0.5 X10*3/uL (0.1-1.2); Monocytes Percent Auto 7.4 % (2-11); Neutrophils Percent Auto 64.7 % (45-73); Platelet Count 245 X10*3/uL (160-400); Red Blood Count 4.76 X10*6/uL (4.20-5.50); Red Cell Distribution Width 12.6 % (11.0-16.0); White Blood Count 6.2 X10*3/uL (4.8-10.8)
[2020-05-31 14:19] LABS: Alanine Aminotransferase 13 U/L (0-31); Albumin Level 4.7 g/dL (3.5-5.0); Alkaline Phosphatase 108 U/L (39-117); Anion Gap 13 (12-20); Aspartate Amino Transferase 18 U/L (5-31); Bilirubin Direct < 0.2 mg/dL (0.0-0.5); Bilirubin Total 0.4 mg/dL (0.0-1.0); Blood Urea Nitrogen 13 mg/dL (9-16); Calcium 9.6 mg/dL (8.4-10.2); Carbon Dioxide 26 mmol/L (22-29); Chloride 107 mmol/L (96-108); Creatinine Clr Calc Pharmacy 86.7; Estimated Glomerular Filt Rate > 60; Glucose Random 97 mg/dL (60-115); Lipase 34 U/L (8-78); Potassium 4.3 mmol/L (3.3-5.1); Sodium 142 mmol/L (135-145); Total Protein 7.2 g/dL (6.5-8.0)
[2020-05-31 14:25] LABS: Troponin-I High Sensitivity < 3.5 ng/L (<3.5-17.0)
[2020-05-31 16:00] LABS: COVID-19 Test Negative (Negative)
== END 2020-05-31 16:48 | disposition home or self-care (01) ==
PROVIDERS: Physician Assistant; Emergency Provider Emergency Medicine; PCP Internal Medicine
DX: K29.80 Duodenitis without bleeding (principal); R19.7 Diarrhea, unspecified; Z20.822 Contact with and (suspected) exposure to COVID-19
CPT/HCPCS: 36415; 74176; 80048; 80076; 83690; 84484; 85025; 87635; 93005; 96360; 99284

== ENCOUNTER 2021-03-31 18:03 | Emergency (ER) | payer BC, MEDICARE, OTHER, SELFPAY ==
[2021-03-31 18:13] VITALS: BP 125/71; PULSE 102; RESP 18; TEMP 36.6; O2SAT 100; BMI 26.5
--- NOTE | 2021-03-31 18:18 | ECG_ITS ---
Test Reason : dizzyness Blood Pressure : / mmHG Vent. Rate : 085 BPM Atrial Rate : 085 BPM P-R Int : 174 ms QRS Dur : 084 ms QT Int : 376 ms P-R-T Axes : 055 -12 035 degrees QTc Int : 447 ms Normal sinus rhythm Possible Left atrial enlargement Cannot rule out Anterior infarct , age undetermined Abnormal ECG When compared with ECG of 31-MAY-2020 13:48, No significant change was found Referred By: Generic ED Physician Electronically Signed By:Kevin Sales
[2021-03-31 19:22] LABS: MANUAL DIFF FLAG NO
[2021-03-31 19:25] LABS: Basophils Percent Auto 0.5 % (0-2); Eosinophils Absolute Auto 0.1 X10*3/uL (0.0-0.4); Eosinophils Percent Auto 0.9 % (0-4); Hematocrit 40.1 % (37.0-47.0); Hemoglobin 13.1 g/dl (12.0-16.0); Imm Gran Abs Auto 0.01 X10*3/uL (0.00-0.03); Imm Gran Pct Auto 0.2 % (0.0-0.4); Lymphocytes Percent Auto 30.8 % (20-40); Mean Corpuscular HGB Conc 32.7 g/dl (31.0-35.0); Mean Corpuscular Hemoglobin 28.4 pg (27.0-33.0); Mean Platelet Volume 9.6 fL (9.4-12.3); Monocytes Absolute Auto 0.5 X10*3/uL (0.1-1.2); Monocytes Percent Auto 7.6 % (2-11); Platelet Count 296 X10*3/uL (160-400); Red Blood Count 4.61 X10*6/uL (4.20-5.50); White Blood Count 6.6 X10*3/uL (4.8-10.8)
[2021-03-31 19:38] LABS: Anion Gap 14 (12-20); Blood Urea Nitrogen 8 mg/dL (9-16); Calcium 10.2 mg/dL (8.4-10.2); Carbon Dioxide 24 mmol/L (22-29); Chloride 109 mmol/L (96-108); Estimated Glomerular Filt Rate > 60; Glucose Random 98 mg/dL (60-115); Sodium 143 mmol/L (135-145)
[2021-03-31 19:50] LABS: Appearance Urine CLEAR; Color Urine YELLOW; Glucose Urine UA NEG (NEG); Leukocyte Esterase Urine NEG (NEG); Nitrite Urine NEG (NEG); Urine Blood NEG (NEG); Urine Ketones NEG (NEG); Urine Protein NEG (NEG-TRACE)
[2021-03-31 22:18] VITALS: BP 129/77; PULSE 93; RESP 16; TEMP 36.6; O2SAT 99
--- NOTE | 2021-03-31 22:38 | ED_ITS ---
HPI - Dizziness General Chief Complaint: Dizziness Stated Complaint: Dizziness Time Seen by Provider: 03/31/21 22:10 Source: patient Mode of arrival: ambulatory Limitations: no limitations History of Present Illness HPI Narrative: Patient is a 60-year-old female medical history with renal tumor status post nephrectomy in 2006, eosinophilic fasciitis, lichen sclerosis. Patient reports 5 days of not feeling like myself it is difficult for her to describe, there is been periods of associated hot flashes, although the hot flashes are not abnormal for her. Four days ago she presented to an urgent care for evaluation of dark urine, she reports that there was blood noted in the urine and she was given antibiotics, she took these for 2 days but then was called back and advised there was no infection and she could stop the antibiotics. Not currently having dysuria, urinary frequency / hesitancy /urgency. She reports onset of dizziness 2 days ago. This has occurred 2-3 times lasting less than 5 minutes with each occurrence. Most recently having occurred tonight she stood up from dinner went to the bathroom and after walking for a few minutes and then developed the dizziness. It is described as feeling off balance. Improves after sitting down. Denies a sensation that she is going to pass out. She states that upon returning home tonight she checked her blood pressure and was concerned as it was elevated, 155/90. Denies headaches, vision changes, syncope, neck pain, chest pain, palpitations, confusion, difficulty with speech, numbness or tingling, shortness of breath, difficulty breathing, nausea, vomiting, or recent head injury. Additionally, she does report about 3 weeks ago being treated for a left ear infection, denies continued pain, drainage from the ear, or decreased hearing. MD elicited complaint: dizziness Onset (ago): day(s) Timing: sudden onset Description: off-balance History of similar symptoms: No Exacerbating factors: nothing Relieving factors: remaining still Associated symptoms: denies other symptoms Related Data Home Medications Medication Instructions Recorded Confirmed alprazolam 0.5 mg tablet 0.25 mg PO BID PRN 05/06/20 09/29/20 folic acid 1 mg tablet 5 mg PO DAILY 05/06/20 09/29/20 methotrexate sodium 2.5 mg tablet 15 mg PO QWEEK 05/06/20 09/29/20 mycophenolate mofetil 500 mg 1.5 g PO BID tab 05/06/20 09/29/20 tablet (CellCept) omeprazole 20 mg capsule,delayed 20 mg PO QAM 05/06/20 09/29/20 release Previous Rx's Medication Instructions Recorded ondansetron HCl 4 mg tablet 4 mg PO Q8H PRN #10 tab 01/20/20 (Zofran) prednisone 20 mg tablet 20 mg PO .COMPLEX #18 tab 09/29/20 amoxicillin 875 mg-potassium 1 tab PO Q12H #14 tab 03/12/21 clavulanate 125 mg tablet (Augmentin) Allergies Allergy/AdvReac Type Severity Reaction Status Date / Time codeine [CODEINE] Allergy Unknown Unknown Verified 03/12/21 09:16 Review of Systems Review of Systems: Constitutional: No weight loss, fever, chills, weakness or fatigue. HEENT: No visual loss, blurred vision, double vision or yellow sclera. No hearing loss, sneezing, congestion, runny nose or sore throat. Skin: No rash or itching. Cardiovascular: No chest pain, chest pressure or chest discomfort. No palpitations or pedal edema. Respiratory: No shortness of breath, cough or sputum production. Gastrointestinal: No anorexia, nausea, vomiting or diarrhea. No abdominal pain or blood in stool. Genitourinary: No burning micturition. No urinary frequency or incontinence. Neurologic: + dizziness. No headache, syncope, unilateral weakness, ataxia, numbness or tingling in the extremities. No change in bowel or bladder control. Musculoskeletal: No muscle pain, back pain, joint pain or stiffness. Hematologic: No bleeding or bruising. Lymphatics: No enlarged lymph nodes. Psychiatric:No depression or anxiety. Endocrine: No cold or heat intolerance. No polyuria or polydipsia. FORMERLY [facility], [facility] Past Medical History Attestation statement: The following information was validated with the patient. Source: old records reviewed Medical History Eosinophilic fasciitis Vulval intraepithelial neoplasia with lichen sclerosus Surgical History History of bladder suspension procedure History of hip replacement History of nephrectomy Social History Social History Alcohol intake: never Patient Tobacco Use Status: Former Tobacco user Advance Directives: No Advance Directives Information Provided: No Patient : No Physical Exam Vital Signs: Vital Signs: Last Vital Signs Temp 97.9 F 03/31/21 22:18 Pulse 77 04/01/21 00:19 Resp 16 03/31/21 22:18 BP 135/77 04/01/21 00:19 Pulse Ox 99 03/31/21 22:18 BMI result Body Mass Index 26.5 Vital signs have been reviewed as normal and appeared to be correct. Blood pressure normal.? Heart rate normal.? Respiration rate normal. Temperature normal.? Oxygen saturation normal. Appearance: Alert.?Oriented to person, place and time. No acute distress.?Normal affect. Head: Normocephalic, atraumatic. No head, sinus or TMJ tenderness.? Eyes: Sclera white, conjunctiva pink. PERRL, 3 mm bilaterally. Visual snyder full to confrontation, EOMi.? Ears: Bilateral ear canals clear, TM visible with good cone of light.? Nose: Nasal mucosa pink and moist with midline septum, nares patent bilater ally.? Mouth/ Throat: Oral mucosa pink and moist without lesions. Pharynx clear, soft palate rises appropriately..?? Neck: Normal inspection.? Neck supple.?? CVS: Heart sounds normal. Normal heart rate and rhythm.? Pulses normal.?? Respiratory: No respiratory distress.? Lung sounds clear to auscultation bilaterally?? Abdomen: Soft and non-tender. No pulsatile mass.?? Skin: Skin warm and dry.? Normal skin color.? Normal skin turgor.?? Extremities: No lower extremity edema.? No calf ttp? Neuro: No focal neurological deficit observed, CN II-XII intact, normal sensory observed, normal coordination observed. Level of consciousness: Appropriate for age. Motor strength: Proximal right upper extremity 5 /5, distal right upper ext remity 5 /5, proximal left upper extremity 5 /5, distal left upper extremity 5 /5, right lower extremity 5 /5, left lower extremity 5 /5.? Speech: Normal, Gait: Normal, [id number]-[id number] test: Normal, Yvza-hq-[id number] test: Normal. NIH Stroke Scale Time: 22:30 Level of Consciousness: Alert Level of Consciousness Questions: Answers both questions correctly Level of Consciousness Commands: Performs both tasks correctly Best Gaze: Normal Visual: No visual loss Facial Palsy: Normal Motor Arm (Right): No drift Motor Arm (Left): No drift Motor Leg (Right): No drift Motor Leg (Left): No drift Limb Ataxia: Absent Sensory: Normal Best Language: No aphasia Dysarthia: Normal Extinction and Inattention: No abnormality Score: 0 Course Course Course Narrative: Patient is a 60-year-old female medical history with renal tumor status post nephrectomy in 2006, eosinophilic fasciitis, lichen sclerosis, being evaluated for intermittent dizziness, feeling off balance without identifiable provoking factors. Normal neurologic exam. Serum labs, urinalysis, EKG be obtained, disposition pending results. Reevaluation(s) Reevaluation #1: CBC normal, chemistry normal, troponin normal, EKG reveals normal sinus rhythm, no acute concerns for ischemia or infarct, urinalysis without concern for infection or hematuria. Reviewed findings with patient, and discussed strict return precautions to the emergency department. Patient is agreeable with plan for discharge home and follow-up with PCP in 1-2 days. Time: 00:41 MDM - Dizziness MDM Narrative Medical decision making narrative: In the setting of normal neurological exam, no focal deficits, NIH score 0, dizziness very transient and self-resolving, less likely to be ICH or ischemic stroke, deferred CT of head at the time. Ortho static blood pressures normal. Medical Records Attestation: I reviewed the patient's medical records. Lab Data Attestation: I reviewed the patient's lab results. Result diagrams: 03/31/21 19:03/31/21 19:01 Labs: Lab Results 03/31/21 03/31/21 03/31/21 Range/Units 19:01 19:01 19:45 WBC 6.6 (4.8-10.8) X10*3/uL RBC 4.61 (4.20-5.50) X10*6/uL Hgb 13.1 (12.0-16.0) g/dl Hct 40.1 (37.0-47.0) % MCV 87.0 (80.0-98.0) fL MCH 28.4 (27.0-33.0) pg MCHC 32.7 (31.0-35.0) g/dl RDW 12.0 (11.0-16.0) % Plt Count 296 (160-400) X10*3/uL MPV 9.6 (9.4-12.3) fL Immature Gran % (Auto) 0.2 (0.0-0.4) % Neut % (Auto) 60.0 (45-73) % Lymph % (Auto) 30.8 (20-40) % [place] % (Auto) 7.6 (2-11) % Eos % (Auto) 0.9 (0-4) % Baso % (Auto) 0.5 (0-2) % Lymph # (Auto) 2.0 (1.2-4.9) X10*3/uL [place] # (Auto) 0.5 (0.1-1.2) X10*3/uL Eos # (Auto) 0.1 (0.0-0.4) X10*3/uL Baso # (Auto) 0.0 (0.0-0.2) X10*3/uL Abs Immat Gran (auto) 0.01 (0.00-0.03) X10*3/uL Absolute Neuts (auto) 4.0 (2.0-8.3) x10*3/uL Absolute Nucleated RBC 0.000 (0.0-0.012) X10*3/uL Nucleated RBC % (auto) 0.0 (0.0-0.2) /100WBC Sodium 143 (135-145) mmol/L Potassium 4.0 (3.3-5.1) mmol/L Chloride 109 H (96-108) mmol/L Carbon Dioxide 24 (22-29) mmol/L Anion Gap 14 (12-20) BUN 8 L (9-16) mg/dL Creatinine 0.60 (0.5-1.4) mg/dL Estim Creat Clear Calc 90.0 Estimated GFR > 60 Random Glucose 98 (60-115) mg/dL Calcium 10.2 D (8.4-10.2) mg/dL Troponin I High Sens (<3.5-17.0) ng/L Urine Color YELLOW Urine Appearance CLEAR Urine pH 6.0 (5.0-8.0) Ur Specific [place] 1.010 (1.005-1.025) Urine Protein NEG (NEG-TRACE) MG/DL Urine Glucose (UA) NEG (NEG) MG/DL Urine Ketones NEG (NEG) MG/DL Urine Blood NEG (NEG) Urine Nitrite NEG (NEG) Ur Leukocyte Esterase NEG (NEG) 03/31/21 Range/Units 23:48 WBC (4.8-10.8) X10*3/uL RBC (4.20-5.50) X10*6/uL Hgb (12.0-16.0) g/dl Hct (37.0-47.0) % MCV (80.0-98.0) fL MCH (27.0-33.0) pg MCHC (31.0-35.0) g/dl RDW (11.0-16.0) % Plt Count (160-400) X10*3/uL MPV (9.4-12.3) fL Immature Gran % (Auto) (0.0-0.4) % Neut % (Auto) (45-73) % Lymph % (Auto) (20-40) % [place] % (Auto) (2-11) % Eos % (Auto) (0-4) % Baso % (Auto) (0-2) % Lymph # (Auto) (1.2-4.9) X10*3/uL [place] # (Auto) (0.1-1.2) X10*3/uL Eos # (Auto) (0.0-0.4) X10*3/uL Baso # (Auto) (0.0-0.2) X10*3/uL Abs Immat Gran (auto) (0.00-0.03) X10*3/uL Absolute Neuts (auto) (2.0-8.3) x10*3/uL Absolute Nucleated RBC (0.0-0.012) X10*3/uL Nucleated RBC % (auto) (0.0-0.2) /100WBC Sodium (135-145) mmol/L Potassium (3.3-5.1) mmol/L Chloride (96-108) mmol/L Carbon Dioxide (22-29) mmol/L Anion Gap (12-20) BUN (9-16) mg/dL Creatinine (0.5-1.4) mg/dL Estim Creat Clear Calc Estimated GFR Random Glucose (60-115) mg/dL Calcium (8.4-10.2) mg/dL Troponin I High Sens < 3.5 (<3.5-17.0) ng/L Urine Color Urine Appearance Urine pH (5.0-8.0) Ur Specific [place] (1.005-1.025) Urine Protein (NEG-TRACE) MG/DL Urine Glucose (UA) (NEG) MG/DL Urine Ketones (NEG) MG/DL Urine Blood (NEG) Urine Nitrite (NEG) Ur Leukocyte Esterase (NEG) ECG Data Attestation: I personally reviewed and interpreted this ECG as follows: ECG interpretation date: 03/31/21 ECG interpretation time: 23:07 Prior ECG tracings: available for review Interpretation: Rate: 85 Rhythm: normal sinus rhythm? Helen:?normal Normal P waves.? Normal PAULINA.?? Normal QRS complex.?? ST T wave :?no ST elevations? qTC: 447 prior studies:?05/31/2020 Discharge Plan Discharge Clinical Impression: Dizziness Patient Disposition: Home, Self-Care Instructions: Lightheadedness (ED), Dizziness (ED) Additional Instructions: You were evaluated in the emergency department for your dizziness. Your exam today, blood tests, EKG, and urine tests were all normal. Please return to the emergency department for any new or worsening symptoms including but not limited to; headaches, vision changes, passing out, neck pain, chest pain, palpitations, confusion, difficulty with speech, numbness or tingling, shortness of breath, difficulty breathing, nausea, or vomiting. Please follow-up with your primary care provider in 1-2 days Prescriptions: No Action ondansetron HCl [Zofran] 4 mg tablet 4 mg PO Q8H PRN (Reason: nausea and vomiting) Qty: 10 RF: 0 omeprazole 20 mg capsule,delayed release(DR/EC) 20 mg PO QAM RF: 0 folic acid 1 mg tablet 5 mg PO DAILY RF: 0 alprazolam 0.5 mg tablet 0.25 mg PO BID PRNRF: 0 methotrexate sodium 2.5 mg tablet 15 mg PO QWEEK RF: 0 mycophenolate mofetil [CellCept] 500 mg tablet 1.5 g PO BID RF: 0 prednisone 20 mg tablet 20 mg PO .COMPLEX Qty: 18 RF: 0 amoxicillin-pot clavulanate [Augmentin] 875-125 mg tablet 1 tab PO Q12H Qty: 14 RF: 0 Interventions: ED Discharge Assessment Last Done: 04/01/21 01:00 Discharge Date/Time: 04/01/21 01:01
[2021-04-01 00:18] LABS: Troponin-I High Sensitivity < 3.5 ng/L (<3.5-17.0)
[2021-04-01 00:19] VITALS: BP 135/77; PULSE 77
== END 2021-04-01 01:01 | disposition home or self-care (01) ==
PROVIDERS: Nurse Practitioner Family; Emergency Provider Emergency Medicine; PCP Internal Medicine
DX: R42 Dizziness and giddiness (principal)
CPT/HCPCS: 36415; 80048; 81003; 84484; 85025; 93005; 99283; 99284

== ENCOUNTER 2021-06-09 10:00 | Outpatient (RCR) | payer BC, MEDICARE, OTHER, SELFPAY | END 2021-08-27 09:41 | disposition home or self-care (01) | LOC: HO.PTCHIC 10:00 | PROVIDERS: PCP Internal Medicine; Visit Provider Internal Medicine | DX: M35.4 Diffuse (eosinophilic) fasciitis (principal) | CPT/HCPCS: 97110; 97112; 97140; 97162 ==

== ENCOUNTER 2021-11-12 15:02 | Emergency (ER) | payer BC, MEDICARE, OTHER, SELFPAY ==
--- NOTE | ~2021-11-12 | XR_ITS ---
EXAMINATION: XR FINGER, RIGHT CLINICAL INFORMATION: First digit cat-bite. COMPARISON: None TECHNIQUE: 3 views of the right hand first digit. FINDINGS: There is no acute fracture or dislocation. The joint spaces are unremarkable. Mild first interphalangeal, carpal metacarpal and triscaphe degenerative joint changes are seen. The carpal bones are normally aligned. The distal radius and ulna are intact. The soft tissues are unremarkable. There is no radiopaque foreign body. XR/XR finger RT min 2V IMPRESSION: 1. No acute osseous or soft tissue abnormality. No radiopaque foreign body. 2. Mild degenerative joint changes most consistent with osteoarthritis.
[2021-11-12 15:11] VITALS: BP 149/70; PULSE 105; RESP 19; TEMP 36.1; O2SAT 98; BMI 26.0
[2021-11-12 15:36] LABS: MANUAL DIFF FLAG NO
[2021-11-12 15:38] LABS: Basophils Absolute Auto 0.1 X10*3/uL (0.0-0.2); Basophils Percent Auto 0.4 % (0-2); Eosinophils Absolute Auto 0.1 X10*3/uL (0.0-0.4); Hematocrit 41.3 % (37.0-47.0); Hemoglobin 13.9 g/dl (12.0-16.0); Imm Gran Abs Auto 0.04 X10*3/uL (0.00-0.03); Imm Gran Pct Auto 0.3 % (0.0-0.4); Lymphocytes Absolute Auto 2.1 X10*3/uL (1.2-4.9); Lymphocytes Percent Auto 15.8 % (20-40); Mean Corpuscular HGB Conc 33.7 g/dl (31.0-35.0); Mean Corpuscular Hemoglobin 28.8 pg (27.0-33.0); Mean Corpuscular Volume 85.7 fL (80.0-98.0); Mean Platelet Volume 9.4 fL (9.4-12.3); Monocytes Absolute Auto 0.6 X10*3/uL (0.1-1.2); Monocytes Percent Auto 4.7 % (2-11); Neutrophils Absolute Auto 10.4 x10*3/uL (2.0-8.3); Neutrophils Percent Auto 77.8 % (45-73); Platelet Count 256 X10*3/uL (160-400); Red Blood Count 4.82 X10*6/uL (4.20-5.50); Red Cell Distribution Width 12.1 % (11.0-16.0); White Blood Count 13.3 X10*3/uL (4.8-10.8)
[2021-11-12 15:52] LABS: Anion Gap 17 (12-20); Blood Urea Nitrogen 10 mg/dL (9-16); C Reactive Protein 0.12 mg/dL (< or = 0.50); Calcium 9.5 mg/dL (8.4-10.2); Carbon Dioxide 21 mmol/L (22-29); Chloride 106 mmol/L (96-108); Estimated Glomerular Filt Rate > 60; Glucose Random 106 mg/dL (60-115); Potassium 3.9 mmol/L (3.3-5.1); Sodium 140 mmol/L (135-145)
[2021-11-12 16:22] LABS: Erythrocyte Sedimentation Rate 7 MM/HR (0-20)
--- NOTE | 2021-11-12 16:23 | ED_ITS ---
HPI - General Adult General Chief complaint: Animal Bite Stated complaint: cat bit on finger Time Seen by Provider: 11/12/21 15:12 Source: patient Mode of arrival: ambulatory Limitations: no limitations History of Present Illness HPI narrative: Patient is a 61 year old female presenting to the emergency department today with a cat bite to her right thumb. Patient states that it was her own cat that bit her because she isn't feeling well secondary to old age / failure to thrive. Patient states that this happened a few hours ago and now it is already swollen and painful. Patient states that she does not know when her last tetanus shot was. Patient denies any dizziness, lightheadedness, abdominal pain, nausea, vomiting, fever, chills, blurry vision, double vision, loss of vision, chest pain, difficulty breathing, shortness of breath, back pain, night sweats, pain with urination, increased urinary frequency, increased urinary urgency, blood in her urine or stool, syncope or a near syncopal episode, bowel incontinence, bladder incontinence, bowel retention, bladder retention, or any other com plaints at this time. Onset (ago): hour(s) Location: right and upper extremity (thumb) Radiation: non-radiation Severity: mild Severity scale (1-10): 2 Quality: aching Pain Consistency: constant Relieving factors: none Exacerbating factors: none Associated symptoms: denies other symptoms Treatments prior to arrival: none Related Data Home Medications Medication Instructions Recorded Confirmed alprazolam 0.5 mg tablet 0.25 mg PO BID PRN 05/06/20 09/29/20 folic acid 1 mg tablet 5 mg PO DAILY 05/06/20 09/29/20 methotrexate sodium 2.5 mg tablet 15 mg PO QWEEK 05/06/20 09/29/20 mycophenolate mofetil 500 mg 1.5 g PO BID 05/06/20 09/29/20 tablet (CellCept) omeprazole 20 mg capsule,delayed 20 mg PO QAM 05/06/20 09/29/20 release Previous Rx's Medication Instructions Recorded ondansetron HCl 4 mg tablet 4 mg PO Q8H PRN nausea and 01/20/20 (Zofran) vomiting #10 tabs prednisone 20 mg tablet 20 mg PO .COMPLEX #18 tabs 09/29/20 amoxicillin 875 mg-potassium 1 tab PO Q12H #14 tabs 03/12/21 clavulanate 125 mg tablet (Augmentin) amoxicillin 875 mg-potassium 1 tab PO BID 10 days #20 tabs 11/12/21 clavulanate 125 mg tablet Allergies Allergy/AdvReac Type Severity Reaction Status Date / Time codeine [CODEINE] Allergy Unknown Unknown Verified 03/12/21 09:16 Review of Systems Constitutional: Constitutional: Reports no additional constitutional complaints, Denies chills, Denies fever(s) and Denies night sweats Eyes: Eyes: Reports no additional eye complaints, Denies blurry vision, Denies change in vision, Denies diplopia, Denies eye discharge, Denies loss of vision and Denies eye pain ENT: Denies dizziness Cardiovascular: Cardiovascular: Reports no additional cardiovascular complaints, Denies chest pain, Denies lightheadedness, Denies Loss of Consciousness and Denies dyspnea Respiratory: Respiratory: Reports no additional respiratory complaints and Denies dyspnea Gastrointestinal: Gastrointestinal: Reports no additional gastrointestinal complaints, Denies abdominal pain, Denies melena, Denies hematochezia, Denies change in bowel habits and Denies change in stool character Genitourinary: Genitourinary: Denies hematuria, Denies urinary frequency, Denies dysuria, Denies urinary incontinence, Denies urinary hesitancy and Denies urinary urgency Musculoskeletal: Musculoskeletal: Reports no additional musculoskeletal complaints, Denies numbness and Denies tingling Comments: cat bite to right thumb Neurologic: Denies dizziness, Denies loss of vision, Denies numbness and Denies tingling Psychiatric: Psychiatric: Reports no additional psychiatric complaints Endocrine: Endocrine: Reports no additional endocrine complaints Hematologic/Lymphatic: Hematologic/Lymphatic: Reports no additional hematologic/lymphatic complaints Allergic/Immunologic: Allergic/Immunologic: Reports no additional allergic/imm unologic complaints [facility] Past Medical History Attestation statement: The following information was validated with the patient. Source: old records reviewed Medical History Eosinophilic fasciitis Vulval intraepithelial neoplasia with lichen sclerosus Surgical History History of bladder suspension procedure History of hip replacement History of nephrectomy Social History Social History Alcohol intake: never Patient Tobacco Use Status: Former Tobacco user Advance Directives: Yes Advance Directives Information Provided: No Advance Directives on File: No Physical Exam ED Vital Signs: Vital Signs - 24 hr 11/12/21 15:11 Temperature 97 F Pulse Rate 105 H Respiratory Rate 19 Blood Pressure 149/70 H Pulse Oximetry 98 Oxygen Delivery Method Room Air BMI result Body Mass Index 26.0 Const General: cooperative, no acute distress, alert and awake Nutritional Appearance: well nourished Orientation/consciousness: patient oriented x3 Limitations: no limitations HENMT Head: Yes normal to inspection and Yes atraumatic Ears: hearing grossly normal bilaterally and external ears normal General nose exam: Normal external nose present, no nasal discharge noted and no epistaxis Face and sinus: Yes normal facial exam, No abrasion and No laceration Mouth: Normal oral and palatal mucosa present, no drooling and no muffled voice Eyes General: appearance normal, both eyes and all related structures Periorbital: periorbital findings normal Eyelids: Yes eyelids normal Conjunctivae: conjunctivae normal Pupils: Equal, round and reactive pupils present EOM: EOMs intact bilaterally Neck Neck: Yes normal visual inspection, Yes full ROM and Yes no lymphadenopathy Chest Chest palpation & inspection: normal inspection of the chest Resp Effort & Inspection: normal respiratory effort and able to speak in complete sentences Auscultation: clear to auscultation bilaterally Cardio Rate: regular rate Rhythm: regular rhythm GI Inspection: Yes normal to inspection Neuro General: patient oriented x3 and moves all extremities Cranial nerves: Yes Equal, round and reactive pupils present Cognition (Neuro): normal cognition Motor exam (neuro): 5/5 motor strength present throughout Sensory Exam: Normal double simultaneous stimulation for sensation Coordination: [id number] test normal Extrem Other: puncture wound to palmar aspect of the right thumb, no active bleeding, surrounding erythema and warmth with minimal swelling General: Yes full ROM and Yes capillary refill normal Psych Appearance: grossly normal Mental Status: mental status grossly normal Affect: normal affect Attitude: cooperative Thought process: Normal thought process present Thought content: Normal thought content present Insight: Good insight present (Psych) Medical Decision Making MDM Narrative Medical decision making narrative: Patient is a 61 year old female presenting to the emergency department today with right thumb pain after a cat bite. Patient's physical exam showed a small puncture wound to the palmar aspect of the right thumb with minimal swelling and surrounding erythema and warmth. Patient's ROM, circulation, strength, and sensation were in tact to the entire right upper extremity. Patient's blood work showed an elevated WBC count of 13.3, which is to be expected secondary to an infected puncture wound. Patient's right hand x-ray showed no acute fracture. I explained my physical exam findings as well as all test results to the patient. Patient agreed to quarantine her cat to monitor for symptoms of rabies. I answered all questions asked by the patient. Patient received a tetanus booster and her first dose of Augmentin while in the department. I stressed the impo rtance of the patient paying close attention to the wound and if it gets worse at any point, to come back to the emergency department immediately. I stressed the importance of the patient taking her medication as prescribed. I stressed the importance of the patient following up with her primary care provider. I stressed the importance of the patient returning to the emergency department immediately if her symptoms were to worsen or if she were to develop any dizziness, shortness of breath, difficulty breathing, chest pain, blurry vision, loss of vision, nausea, vomiting, abdominal pain, fever, chills, back pain, or any other complaints. Patient verbalized agreement and understanding with this treatment plan and discharge. Differential Diagnosis Differential Diagnosis: cat bite Medical Records Medical records reviewed: Yes I reviewed the patient's medical records. Lab Data Lab results reviewed: Yes I reviewed the patient's lab results. Result diagrams: 11/12/21 15:33 11/12/21 15:33 Labs: Lab Results 11/12/21 11/12/21 11/12/21 Range/Units 15:33 15:33 15:33 WBC 13.3 H (4.8-10.8) X10*3/uL RBC 4.82 (4.20-5.50) X10*6/uL Hgb 13.9 (12.0-16.0) g/dl Hct 41.3 (37.0-47.0) % MCV 85.7 (80.0-98.0) fL MCH 28.8 (27.0-33.0) pg MCHC 33.7 (31.0-35.0) g/dl RDW 12.1 (11.0-16.0) % Plt Count 256 (160-400) X10*3/uL MPV 9.4 (9.4-12.3) fL Immature Gran % (Auto) 0.3 (0.0-0.4) % Neut % (Auto) 77.8 H (45-73) % Lymph % (Auto) 15.8 L (20-40) % [place] % (Auto) 4.7 (2-11) % Eos % (Auto) 1.0 (0-4) % Baso % (Auto) 0.4 (0-2) % Lymph # (Auto) 2.1 (1.2-4.9) X10*3/uL [place] # (Auto) 0.6 (0.1-1.2) X10*3/uL Eos # (Auto) 0.1 (0.0-0.4) X10*3/uL Baso # (Auto) 0.1 (0.0-0.2) X10*3/uL Abs Immat Gran (auto) 0.04 H (0.00-0.03) X10*3/uL Absolute Neuts (auto) 10.4 H (2.0-8.3) x10*3/uL Absolute Nucleated RBC 0.000 (0.0-0.012) X10*3/uL Nucleated RBC % (auto) 0.0 (0.0-0.2) /100WBC ESR 7 (0-20) MM/HR Sodium 140 (135-145) mmol/L Potassium 3.9 (3.3-5.1) mmol/L Chloride 106 (96-108) mmol/L Carbon Dioxide 21 L (22-29) mmol/L Anion Gap 17 (12-20) BUN 10 (9-16) mg/dL Creatinine 0.66 (0.5-1.4) mg/dL Estim Creat Clear Calc 80.0 Estimated GFR > 60 Random Glucose 106 (60-115) mg/dL Calcium 9.5 D (8.4-10.2) mg/dL C-Reactive Protein 0.12 (< or = 0.50) mg/dL Imaging Data Right finger x-ray: Attestation: I personally reviewed and interpreted this imaging study as follows: My impression: No acute fracture. Radiologist's impression: EXAMINATION: XR FINGER, RIGHT CLINICAL INFORMATION: First digit cat-bite. COMPARISON: None? TECHNIQUE: 3 views of the right hand first digit. FINDINGS: There is no acute fracture or dislocation. The joint spaces are unremarkable. Mild first interphalangeal, carpal metacarpal and triscaphe degenerative joint changes are seen. The carpal bones are normally aligned. The distal radius and ulna are intact. The soft tissues are unremarkable. There is no radiopaque foreign body. XR/XR finger RT min 2V IMPRESSION: 1. No acute osseous or soft tissue abnormality. No radiopaque foreign body. 2. Mild degenerative joint changes most consistent with osteoarthritis. Dictated By: Pelon Flannery MD Signed By: Electronically signed by Pelon Flannery MD 11/12/21 1969 Discharge Plan Discharge Clinical Impression: Cat bite Patient Disposition: Home, Self-Care Instructions: Animal Bite (ED) Additional Instructions: Follow up with your primary care provider. Return to the emergency department immediately if your symptoms worsen or if you develop any dizziness, shortness of breath, difficulty breathing, chest pain, blurry vision, loss of vision, nausea, vomiting, abdominal pain, fever, chills, back pain, or any other complaints. Prescriptions: New amoxicillin-pot clavulanate 875-125 mg tablet 1 tab PO BID 10 Days Qty: 20 0RF No Action ondansetron HCl [Zofran] 4 mg tablet 4 mg PO Q8H PRN (Reason: nausea and vomiting) Qty: 10 0RF omeprazole 20 mg capsule,delayed release(DR/EC) 20 mg PO QAM folic acid 1 mg tablet 5 mg PO DAILY alprazolam 0.5 mg tablet 0.25 mg PO BID PRN methotrexate sodium 2.5 mg tablet 15 mg PO QWEEK mycophenolate mofetil [CellCept] 500 mg tablet 1.5 g PO BID prednisone 20 mg tablet 20 mg PO .COMPLEX Qty: 18 0RF Rx Instructions: 20 mg PO 3 p.o. daily for 3 days followed by 2 p.o. daily for 3 days followed by 1 p.o. daily for 3 days; amoxicillin-pot clavulanate [Augmentin] 875-125 mg tablet 1 tab PO Q12H Qty: 14 0RF Referrals: Oswaldo Lynch MD [Primary Care Provider] - Print Language: Azeri
[2021-11-12] MEDS: Diphth,Pertus(ACell),Tet Adult 0.5 ML SYRINGE IM (17:37)
[2021-11-12] MEDS: Amoxicillin/Potassium Clav 875 MG TABLET PO (17:37)
== END 2021-11-12 17:43 | disposition home or self-care (01) ==
PROVIDERS: Emergency Provider Student in an Organized Health Care Education/Training Program; PCP Internal Medicine
DX: S61.051A Open bite of right thumb without damage to nail, initial encounter (principal); W55.01XA Bitten by cat, initial encounter; Y93.9 Activity, unspecified; Y92.019 Unspecified place in single-family (private) house as the place of occurrence of the external cause; Y99.9 Unspecified external cause status
CPT/HCPCS: 36415; 73140; 80048; 85025; 85652; 86140; 90471; 90715; 99283; 99284

== ENCOUNTER 2021-11-13 07:38 | Emergency (ER) | payer BC, MEDICARE, OTHER, SELFPAY ==
[2021-11-13 07:46] VITALS: BP 142/70; PULSE 90; RESP 18; TEMP 36.7; O2SAT 98; BMI 26.0
--- NOTE | 2021-11-13 07:48 | ED.ANIMALBIT ---
HPI - Animal Bite General Chief Complaint: Animal Bite Stated Complaint: cat bite Time Seen by Provider: 11/13/21 07:45 Source: patient Mode of arrival: ambulatory Limitations: no limitations History of Present Illness HPI narrative: 61 yo female with hx of cat bite by her own cat who is indoor (no exposure to rabies) bit in R thumb. Started on augmentin yesterday took two doses so far. She was nervous because she squeezed it today and saw some yellow exudate come out so she thought she should get it checked out. Overall the swelling and redness is the same. MD complaint: animal bite Onset (ago): day(s) (yesterday ) Animal: cat Description of animal: household pet Mechanism: bite Location - Extremities: right: hand (thumb) Pain description: dull Context: unprovoked (cat is older and FTT) Associated symptoms: erythema and discharge from wound (this morning saw some yellow drainage) Treatments prior to arrival: other (had labs, xray no FB yesterday, started on augmentin) Related Data Home Medications Medication Instructions Recorded Confirmed alprazolam 0.5 mg tablet 0.25 mg PO BID PRN 05/06/20 09/29/20 folic acid 1 mg tablet 5 mg PO DAILY 05/06/20 09/29/20 methotrexate sodium 2.5 mg tablet 15 mg PO QWEEK 05/06/20 09/29/20 mycophenolate mofetil 500 mg 1.5 g PO BID 05/06/20 09/29/20 tablet (CellCept) omeprazole 20 mg capsule,delayed 20 mg PO QAM 05/06/20 09/29/20 release Previous Rx's Medication Instructions Recorded ondansetron HCl 4 mg tablet 4 mg PO Q8H PRN nausea and 01/20/20 (Zofran) vomiting #10 tabs prednisone 20 mg tablet 20 mg PO .COMPLEX #18 tabs 09/29/20 amoxicillin 875 mg-potassium 1 tab PO Q12H #14 tabs 03/12/21 clavulanate 125 mg tablet (Augmentin) amoxicillin 875 mg-potassium 1 tab PO BID 10 days #20 tabs 11/12/21 clavulanate 125 mg tablet Allergies Allergy/AdvReac Type Severity Reaction Status Date / Time codeine [CODEINE] Allergy Unknown Unknown Verified 03/12/21 09:16 Review of Systems Review of Systems: Constitutional : No Fever, No Chills ENT/Mouth : No sore throat, No Rhinorrhea Eyes: No Eye Pain, No Swelling, No Redness Cardiovascular : No Chest Pain, No SOB Respiratory : No Cough, No Sputum Gastrointestinal : No Nausea, No Vomiting, No Diarrhea, No abdominal Pain Genitourinary : No Dysuria, No Hematuria Musculoskeletal : No joint pain, No Myalgias, No Joint Swelling Skin : No Skin Lesions, positive skin rash Neuro : No Weakness, No Numbness, No Headache PMFSH Past Medical History Attestation statement: The following information was validated with the patient. Medical History Eosinophilic fasciitis Vulval intraepithelial neoplasia with lichen sclerosus Surgical History History of bladder suspension procedure History of hip replacement History of nephrectomy Social History Social History Alcohol intake: never Patient Tobacco Use Status: Former Tobacco user Advance Directives: No Physical Exam ED Vital Signs: Vital Signs - 24 hr 11/13/21 07:46 Temperature 98.0 F Pulse Rate 90 Respiratory Rate 18 Blood Pressure 142/70 H Pulse Oximetry 98 Oxygen Delivery Method Room Air BMI result Body Mass Index 26.0 Appearance: Alert. Oriented X3. No acute distress. Eyes: Pupils equal, round and reactive to light. ENT: Pharynx normal. Neck: Normal inspection. Neck supple. CVS: Pulses normal. Respiratory: No respiratory distress. Abdomen: atraumatic Skin: Skin warm and dry. Normal skin color. Extremities: No lower extremity edema. R thumb puncture wound noted medial aspect of thumb no purulence noted or fluctuance, mild erythema, minimal swelling. Full ROM, no involvement of tendon, no fusiform swelling or circumferential involvement. Neuro: Oriented X 3. No motor deficit. No sensory deficit. MDM - Animal Bite MDM Narrative Medical decision making narrative: 61 yo female with cat bite - started on augmentin. No concern for rabies as it is indoor cat without possible exposure. Cat is being quarantined. R thumb appears mildly red and swollen no concern for abscess or deeper space infection. She has no systemic signs. At this time will give her a dose of zosyn while she is here given she did not take her AM augmentin and resume PO medications at home. Given precautions to return. Discharge Plan Discharge Clinical Impression: Cat bite Patient Disposition: Home, Self-Care Instructions: Animal Bite (ED) Additional Instructions: return to ED for any worsening symptoms or concerns take your augmentin 6 hours from now and then evening dose monitor for increased redness, swelling, fevers, pain, inability to move thumb, increase in yellow drainage. keep clean and dry do not soak - take all antibiotics quarantine and monitor your cat Prescriptions: No Action ondansetron HCl [Zofran] 4 mg tablet 4 mg PO Q8H PRN (Reason: nausea and vomiting) Qty: 10 0RF amoxicillin-pot clavulanate 875-125 mg tablet 1 tab PO BID 10 Days Qty: 20 0RF omeprazole 20 mg capsule,delayed release(DR/EC) 20 mg PO QAM folic acid 1 mg tablet 5 mg PO DAILY alprazolam 0.5 mg tablet 0.25 mg PO BID PRN methotrexate sodium 2.5 mg tablet 15 mg PO QWEEK mycophenolate mofetil [CellCept] 500 mg tablet 1.5 g PO BID prednisone 20 mg tablet 20 mg PO .COMPLEX Qty: 18 0RF Rx Instructions: 20 mg PO 3 p.o. daily for 3 days followed by 2 p.o. daily for 3 days followed by 1 p.o. daily for 3 days; amoxicillin-pot clavulanate [Augmentin] 875-125 mg tablet 1 tab PO Q12H Qty: 14 0RF Stand Alone Forms: Work/School Release
[2021-11-13] MEDS: Piperacillin Sodium/Tazobactam 3.375 GM in 0.9 % Sodium Chloride 50 ML IV (08:04)
== END 2021-11-13 08:44 | disposition home or self-care (01) ==
PROVIDERS: Emergency Provider Emergency Medicine; PCP Internal Medicine
DX: S60.371A Other superficial bite of right thumb, initial encounter (principal); W55.01XA Bitten by cat, initial encounter; Y93.9 Activity, unspecified; Y92.009 Unspecified place in unspecified non-institutional (private) residence as the place of occurrence of the external cause; Y99.9 Unspecified external cause status; Z79.899 Other long term (current) drug therapy; Z87.891 Personal history of nicotine dependence
CPT/HCPCS: 96365; 99283; 99284; J2543

== ENCOUNTER 2022-01-22 13:54 | Outpatient (REF) | payer BC, MEDICARE, OTHER, SELFPAY ==
[2022-01-22 14:44] LABS: Influenza A PCR NEGATIVE (Negative); Influenza B PCR NEGATIVE (Negative); Resp Syncy Virus RNA Qual PCR NEGATIVE (Negative); SARS COV2 PCR INHOUSE NEGATIVE (Negative)
== END 2022-01-22 13:55 | disposition home or self-care (01) ==
LOC: HO.LNP 13:54
PROVIDERS: Visit Provider Physician Assistant
DX: Z20.822 Contact with and (suspected) exposure to COVID-19 (principal); J06.9 Acute upper respiratory infection, unspecified
CPT/HCPCS: 0241U

== ENCOUNTER 2023-08-13 09:02 | Outpatient (AMB) | payer MEDICARE, BC, OTHER, SELFPAY ==
--- NOTE | 2023-08-13 09:05 | MHC.OFFWIV ---
Intake Vital Signs 08/13/23 09:06 Height 5 ft 3 in Weight 146 lb BMI 25.9 BP 110/70 Blood Pressure Location Lt brachial Position Sitting Pulse 80 Pulse Source Pulse Oximeter Temp 98.2 F Temp Source Oral Pulse Oximetry (%) 98 Oxygen Delivery Method Room Air Intake Visit Reasons: Est/ chest congestion (lobby masked) Intake Note: Patient here for chest congestion that has been present for about 3 days. Patient Tobacco Use Status: Former Tobacco user Allergies codeine [CODEINE] Allergy (Unknown, Verified 08/13/23 09:19) Unknown Do you need a note to return to daycare/school/sports/work: No HPI HPI Comments History of Present Illness Details Here today with complaints of postnasal drip and a hacking cough that started 3 days ago. Has used a Neti pot and Mucinex try to help with her symptoms without relief. She denies fever, chills. Admits to sore throat but that is from coughing. Has been using her daughter's inhaler at home with positive effect. She does not have her own prescription for an inhaler. REPLACED BY [facility] Medical History Eosinophilic fasciitis Vulval intraepithelial neoplasia with lichen sclerosus Surgical History History of bladder suspension procedure History of hip replacement History of nephrectomy Social History Alcohol intake: never Patient Tobacco Use Status: Former Tobacco user Review of Systems Const All systems reviewed & are unremarkable except as noted in HPI and below Physical Exam Vital Signs: Last Vital Signs Temp 98.2 F 08/13/23 09:06 Pulse 80 08/13/23 09:06 BP 110/70 08/13/23 09:06 Pulse Ox 98 08/13/23 09:06 Oxygen Delivery Method Room Air 08/13/23 09:06 BMI result Body Mass Index 25.9 Const Other: Awake alert NAD Sclera and conjunctiva clear bilat Nares patent, turbinates within normal limits, no sinus tenderness with palpation bilat Cerumen impaction bilat MMM, pharynx + postnasal drip RRR LS with forced expiration wheezes, no respiratory distress Assessment & Plan Assessment & Plan (1) Bronchitis: Code(s): J40 - Bronchitis, not specified as acute or chronic Plan: . Medications: New benzonatate 100 mg PO TID 10 days PRN 30 caps 1RF cough albuterol sulfate 90 mcg/actuation 2 puffs inhalation Q4-6H 30 days PRN 8.5 grams 0RF shortness of breath or wheezing prednisone 50 mg PO DAILY 5 days 5 tabs 0RF Patient Instructions: The plan will be to treat with a cough suppressant, albuterol inhaler to be used as needed along with 5 days of prednisone. If symptoms worsen advised to return to the office or follow-up with primary care provider. Coding Level of Care Code Est Pt Level 3 (96684) Diagnoses Bronchitis J40
[2023-08-13 09:06] VITALS: BP 110/70; PULSE 80; TEMP 36.8; O2SAT 98; BMI 25.9
== END 2023-08-13 09:25 | disposition home or self-care (01) ==
PROVIDERS: PCP Internal Medicine; Visit Provider Nurse Practitioner Family
DX: J40 Bronchitis, not specified as acute or chronic (principal)
CPT/HCPCS: 99213

== ENCOUNTER 2023-08-23 08:22 | Outpatient (AMB) | payer MEDICARE, BC, OTHER, SELFPAY ==
--- NOTE | 2023-08-23 08:59 | AM.OFFWIN_ITS ---
Intake Vital Signs 08/23/23 09:00 Height 5 ft 3 in Weight 145 lb BMI 25.7 BP 130/78 Blood Pressure Location Lt brachial Position Sitting Pulse 97 Pulse Source Pulse Oximeter Temp 97.3 F Temp Source Temporal Artery Scan Pulse Oximetry (%) 96 Oxygen Delivery Method Room Air Intake Visit Reasons: EP chest congestion, cough Intake Note: pt is here today for chest congestion cough started 1 weeks ago Patient Tobacco Use Status: Former Tobacco user Allergies codeine [CODEINE] Allergy (Unknown, Verified 08/23/23 09:02) Unknown Do you need a note to return to daycare/school/sports/work: No HPI HPI Comments History of Present Illness Details Patient is a 63-year-old female complaining of 2 weeks of chest congestion and a hacking cough with postnasal drip. She was evaluated here on August 12 found to have bronchitis was given an inhaler 5 day burst of prednisone and Tessalon Perles, which she took, she has also been using her daughter's albuterol nebulizer at home. She states that she is also taking Mucinex since yesterday. She denies any fevers, nausea, vomiting, diarrhea, head congestion or ear pain. PENDING SALE TO [facility] Medical History Eosinophilic fasciitis Vulval intraepithelial neoplasia with lichen sclerosus Surgical History History of bladder suspension procedure History of hip replacement History of nephrectomy Social History Alcohol intake: never Patient Tobacco Use Status: Former Tobacco user Review of Systems Const All systems reviewed & are unremarkable except as noted in HPI and below Physical Exam Vital Signs: Last Vital Signs Temp 97.3 F 08/23/23 09:00 Pulse 97 08/23/23 09:00 BP 130/78 08/23/23 09:00 Pulse Ox 96 08/23/23 09:00 Oxygen Delivery Method Room Air 08/23/23 09:00 BMI result Body Mass Index 25.7 Const General: cooperative, healthy appearing, comfortable and no acute distress Orientation/consciousness: patient oriented x3 Limitations: no limitations HEENT Head: Yes normal to inspection Ears: external ears normal General nose exam: Normal external nose present, Normal nares present and No nasal discharge present Mouth: moist mucous membranes Throat: Yes tonsils normal, Yes uvula midline and Yes posterior oropharynx abnormal (erythematous) Eyes General: appearance normal, both eyes and all related structures Neck Neck: Yes normal visual inspection Resp Effort & Inspection: normal respiratory effort, able to speak in complete sentences, Actively coughing Quality: actively coughing, no respiratory distress, not tachypneic, no tripod positioning and no use of accessory muscles Auscultation: clear to auscultation bilaterally and wheezes (slight) scattered wheezes and throughout Cardio Rate: regular rate Rhythm: regular rhythm Heart sounds: normal S1 and S2 Skin General skin exam: no rashes or lesions noted Neuro General: patient oriented x3 Extrem General: Yes normal to inspection and Yes no clubbing, cyanosis or edema Assessment & Plan Assessment & Plan (1) Bronchitis: Code(s): J40 - Bronchitis, not specified as acute or chronic Plan: VSS, Chest x-ray pending. Recommended continuing Mucinex and inhaler PRN. Plan See above Orders: Orders XR chest 2V Today R05.9 - Cough, unspecified Coding Level of Care Code Est Pt Level 3 (92747) Diagnoses Bronchitis J40
[2023-08-23 09:00] VITALS: BP 130/78; PULSE 97; TEMP 36.3; O2SAT 96; BMI 25.7
== END 2023-08-23 09:56 | disposition home or self-care (01) ==
PROVIDERS: PCP Internal Medicine; Visit Provider Physician Assistant
DX: J40 Bronchitis, not specified as acute or chronic (principal)
CPT/HCPCS: 99213

== ENCOUNTER 2023-08-23 09:17 | Outpatient (REF) | payer MEDICARE, BC, OTHER, SELFPAY ==
--- NOTE | ~2023-08-23 | XR_ITS ---
EXAMINATION: XR CHEST CLINICAL INFORMATION: Cough COMPARISON: Chest xray on 11/09/18 TECHNIQUE: 2 views of the chest were obtained. FINDINGS: No significant abnormality is noted involving the heart, lungs, mediastinum, bony thorax or soft tissues. XR/XR chest 2V IMPRESSION: Unremarkable examination.
== END 2023-08-23 09:18 | disposition home or self-care (01) ==
LOC: HO.HMGCX 09:17
PROVIDERS: PCP Internal Medicine; Visit Provider Physician Assistant
DX: R05.9 Cough, unspecified (principal)
CPT/HCPCS: 71046

== ENCOUNTER 2023-10-25 08:02 | Outpatient (AMB) | payer MEDICARE, BC, OTHER, SELFPAY ==
--- NOTE | 2023-10-25 08:04 | MHC.OFFWIV ---
Intake Vital Signs 10/25/23 08:06 Height 5 ft 3 in Weight 147 lb BMI 26.0 BP 120/80 Blood Pressure Location Rt brachial Position Sitting Pulse 89 Pulse Source Pulse Oximeter Pulse Oximetry (%) 98 Oxygen Delivery Method Room Air Intake Visit Reasons: EP LT ear ache Intake Note: Patient here for right ear ache which has been present for about 2 days and kept her awake last night. Patient Tobacco Use Status: Former Tobacco user Allergies codeine [CODEINE] Allergy (Unknown, Verified 10/25/23 08:06) Unknown Do you need a note to return to daycare/school/sports/work: No HPI HPI Comments History of Present Illness Details Patient is a 63-year-old female complaining of left ear pain for the past who days. She states she thought she had wax in her ears about a week ago so she started putting Debrox drops in them but then she started having pain 2 days ago. She said this pain was so bad last night that she could not sleep. She denies any changes in her hearing or fevers. [facility] Medical History Eosinophilic fasciitis Vulval intraepithelial neoplasia with lichen sclerosus Surgical History History of bladder suspension procedure History of hip replacement History of nephrectomy Social History Alcohol intake: never Patient Tobacco Use Status: Former Tobacco user Review of Systems Const All systems reviewed & are unremarkable except as noted in HPI and below Physical Exam Vital Signs: Last Vital Signs Pulse 89 10/25/23 08:06 BP 120/80 10/25/23 08:06 Pulse Ox 98 10/25/23 08:06 Oxygen Delivery Method Room Air 10/25/23 08:06 BMI result Body Mass Index 26.0 Const General: cooperative, healthy appearing, comfortable and no acute distress Orientation/consciousness: patient oriented x3 Limitations: no limitations HEENT Head: Yes normal to inspection Ears: hearing grossly normal bilaterally, external ears normal and TM's normal bilaterally General nose exam: Normal external nose present, Normal nares present and No nasal discharge present Face and sinus: Yes normal facial exam and Yes sinuses nontender Mouth: Normal oral and palatal mucosa present and moist mucous membranes Throat: Yes tonsils normal, Yes uvula midline and Yes posterior oropharynx abnormal (Erythema) Eyes General: appearance normal, both eyes and all related structures Neck Neck: Yes normal visual inspection Resp Effort & Inspection: normal respiratory effort, able to speak in complete sentences, no respiratory distress, not tachypneic, no tripod positioning and no use of accessory muscles Skin General skin exam: no rashes or lesions noted Neuro General: patient oriented x3 Extrem General: Yes normal to inspection and Yes no clubbing, cyanosis or edema Assessment & Plan Assessment & Plan (1) Otitis media: Code(s): H66.90 - Otitis media, unspecified, unspecified ear Qualifiers: Otitis media type: suppurative Chronicity: acute Laterality: left Recurrence: non-recurrent Spontaneous tympanic membrane rupture: without spontaneous rupture Qualified Code(s): H66.002 - Acute suppurative otitis media without spontaneous rupture of ear drum, left ear Plan: Send antibiotics to pharmacy Plan See above Medications: New amoxicillin 875 mg PO Q12H 10 tabs 0RF Coding Level of Care Code New Pt Level 3 (41515) Diagnoses Non-recurrent acute suppurative otitis media of left ear without spontaneous rupture of tympanic membrane H66.002 Otitis media type: suppurative Chronicity: acute Laterality: left Recurrence: non-recurrent Spontaneous tympanic membrane rupture: without spontaneous rupture
[2023-10-25 08:06] VITALS: BP 120/80; PULSE 89; O2SAT 98; BMI 26.0
== END 2023-10-25 08:16 | disposition home or self-care (01) ==
PROVIDERS: PCP Internal Medicine; Visit Provider Physician Assistant
DX: H66.002 Acute suppurative otitis media without spontaneous rupture of ear drum, left ear (principal)
CPT/HCPCS: 99213

== ENCOUNTER 2023-12-06 10:17 | Outpatient (AMB) | payer MEDICARE, BC, OTHER, SELFPAY ==
[2023-12-06 10:20] VITALS: BP 130/78; PULSE 89; O2SAT 97; BMI 25.9
--- NOTE | 2023-12-06 10:20 | HO.NEPHOV_ITS ---
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 She self-referred herself for renal evaluation She has been on methotrexate in the past. This was discontinued about 4 or 5 years ago. She was on CellCept which was completed about 8 weeks ago. She has a history of renal cell carcinoma and status post left nephrectomy in 2005. She has been followed by Urology periodically. Recent she has had foul-smelling urine. She had right-sided line pain. No relationship to urination no hematuria. Pain does not radiate. [facility] Medical History (Updated 10/25/23 @ 08:18 by Chaparrita Owen PA-C) Vulval intraepithelial neoplasia with lichen sclerosus Eosinophilic fasciitis Surgical History (Updated 12/06/23 @ 10:39 by Akash Berman MD) History of bladder suspension procedure History of nephrectomy History of hip replacement Social History Alcohol intake: never Patient Tobacco Use Status: Former Tobacco user Physical Exam Vital Signs: Last Vital Signs Pulse 89 12/06/23 10:20 BP 130/78 12/06/23 10:20 Pulse Ox 97 12/06/23 10:20 Oxygen Delivery Method Room Air 12/06/23 10:20 BMI result Body Mass Index 25.9 Const General: comfortable; No acute distress Orientation/consciousness: patient oriented x3 Eyes General: appearance normal, both eyes and all related structures Visual Valerio: normal visual valerio by confrontation Neck Neck: Yes supple and Yes no JVD Resp Effort & Inspection: normal respiratory effort and respiratory effort not decreased Auscultation: rhonchi Cardio Palpation: no palpable S3 and no palpable S4 Heart sounds: no rubs GI Inspection: Yes normal to inspection Palpation (GI): Soft to palpation Percussion: Yes normal to percussion Auscultation: normal bowel sounds General: Yes no CVA tenderness Back/Spine/Pelvis Back: no CVA tenderness Skin General skin exam: no petechiae and no purpura Neuro General: patient oriented x3 and no focal motor deficits Extrem General: No clubbing and No edema Results Reviewed Nephrology Results: Hgb 13.9 g/dl (12.0-16.0) 11/12/21 WBC 13.3 X10*3/uL (4.8-10.8) H 11/12/21 Plt Count 256 X10*3/uL (160-400) 11/12/21 Sodium 140 mmol/L (135-145) 11/12/21 Potassium 3.9 mmol/L (3.3-5.1) 11/12/21 Chloride 106 mmol/L (96-108) 11/12/21 Carbon Dioxide 21 mmol/L (22-29) L 11/12/21 BUN 10 mg/dL (9-16) 11/12/21 Creatinine 0.66 mg/dL (0.5-1.4) 11/12/21 Calcium 9.5 mg/dL (8.4-10.2) 11/12/21 Urine Protein NEG MG/DL (NEG-TRACE) 03/31/21 Assessment & Plan Assessment & Plan (1) History of nephrectomy: Code(s): Z90.5 - Acquired absence of kidney Category: Surgical Plan 61-year-old man with a history of left nephrectomy for renal cell carcinoma. At present time renal function stable. Plan Urinalysis and urine culture to rule out UTI. Renal ultrasonogram to assess right kidney. Encouraged her to stand low-sodium diet Increase p.o. fluid intake. Further workup will be based on the outcome of the above investigations. I have reassured her and answered all her questions Orders: Orders UA and rflx microscopic Today Z90.5 - Acquired absence of kidney US renal BI Today Z90.5 - Acquired absence of kidney Coding Level of Care Code New Pt Level 4 (76955) Diagnoses History of nephrectomy Z90.5
== END 2023-12-06 10:41 | disposition home or self-care (01) ==
PROVIDERS: PCP Internal Medicine; Visit Provider Internal Medicine Hypertension Specialist
DX: M35.4 Diffuse (eosinophilic) fasciitis (principal); Z90.5 Acquired absence of kidney; Z85.528 Personal history of other malignant neoplasm of kidney
CPT/HCPCS: 99204

== ENCOUNTER → 2023-12-06 10:17 | Outpatient (BNVA) | payer MEDICARE, BC, OTHER, SELFPAY | PROVIDERS: PCP Internal Medicine; Visit Provider Internal Medicine Hypertension Specialist | DX: Z90.5 Acquired absence of kidney (principal) | CPT/HCPCS: 99202 ==

== ENCOUNTER 2023-12-06 11:10 | Outpatient (REF) | payer MEDICARE, BC, OTHER, SELFPAY ==
[2023-12-06 13:13] LABS: Appearance Urine Clear; Color Urine Yellow; Glucose Urine UA Negative (Negative); Leukocyte Esterase Urine Negative (Negative); Nitrite Urine Negative (Negative); PH 6.5 (5.0-9.0); Specific Gravity - Urine <= 1.005 (1.005-1.025); Urine Blood Negative (Negative); Urine Ketones Negative (Negative); Urine Protein Negative (Neg-Trace)
== END 2023-12-06 11:11 | disposition home or self-care (01) ==
LOC: HO.HMGCLDS 11:10
PROVIDERS: PCP Internal Medicine; Visit Provider Internal Medicine Hypertension Specialist
DX: Z85.528 Personal history of other malignant neoplasm of kidney (principal); R82.90 Unspecified abnormal findings in urine; Z90.5 Acquired absence of kidney
CPT/HCPCS: 81003; 99202

== ENCOUNTER 2023-12-15 08:32 | Outpatient (REF) | payer MEDICARE, BC, OTHER, SELFPAY ==
--- NOTE | ~2023-12-15 | US_ITS ---
EXAMINATION: US RETROPERITONEAL LIMITED, RIGHT (RENAL ONLY) CLINICAL INFORMATION: Acquired absence of kidney. COMPARISON: CT abdomen and pelvis 05/31/2020. TECHNIQUE: Real-time imaging of the right kidney. FINDINGS: RIGHT KIDNEY: 13.6 x 6.2 x 6.3 cm (SAG x AP x TRV). The kidney is normal in size, contour, and echogenicity. Renal cortical thickness is normal. No calculi or focal parenchymal lesions. No hydronephrosis. ADDITIONAL FINDINGS: Incidental note made of an echogenic liver consistent with hepatic steatosis. US/US renal RT IMPRESSION: 1. Normal-appearing right kidney. 2. Incidentally noted hepatic steatosis. Electronically signed by: Walker Maldonado MD 12/30/2023 01:36 PM EDT
== END 2023-12-15 08:33 | disposition home or self-care (01) ==
LOC: HO.US 08:32
PROVIDERS: PCP Internal Medicine; Visit Provider Internal Medicine Hypertension Specialist
DX: Z90.5 Acquired absence of kidney (principal)
CPT/HCPCS: 76775

== ENCOUNTER 2024-09-02 06:37 | Emergency (ER) | payer MEDICARE, BC, OTHER, SELFPAY ==
--- NOTE | ~2024-09-02 | CT_ITS ---
CLINICAL HISTORY: fall, pain CT cervical spine without contrast Comparison: None provided Findings: Normal vertebral body alignment. Mild multilevel degenerative changes most pronounced at C4-5 and C5-6. No acute fractures or dislocations. No acute findings on limited view of the intracranial contents. Soft tissues of the neck are normal. No consolidation or effusion at the lung apices. IMPRESSION: No acute findings. Mild degenerative changes. This document has been electronically signed by: Roby Murillo MD on 09/02/2024 09:20:57
--- NOTE | ~2024-09-02 | CT_ITS ---
CLINICAL HISTORY: fall, head injury, H A nausea CT head without contrast Comparison: None provided Findings: No intra-axial mass, midline shift, hydrocephalus, or acute hemorrhage. No significant atrophy-like change or white matter disease. There is no sinus or mastoid fluid. The orbits are unremarkable. No skull fracture. IMPRESSION: 1. No acute intracranial findings. This document has been electronically signed by: Roby Murillo MD on 09/02/2024 08:57:48
--- NOTE | ~2024-09-02 | CT_ITS ---
CLINICAL HISTORY: coon, R orbital injury CT maxillofacial without contrast Comparison: None provided Findings: No acute fractures. Temporomandibular joints are intact. Small retention cysts within the right maxillary sinus. Orbits and orbital contents appear normal. Visualized intracranial contents are within normal limits. No foreign bodies. IMPRESSION: No facial bone fracture. This document has been electronically signed by: Roby Murillo MD on 09/02/2024 09:05:01
--- NOTE | ~2024-09-02 | XR_ITS ---
CLINICAL HISTORY: fall, pain, prior replacement 3 view, pelvis and left hip Comparison: None provided Findings: The bony pelvis is intact. The bilateral femoral arthroplasties also appear intact. No left-sided periprosthetic fracture. The soft tissues are unremarkable. IMPRESSION: No acute findings. This document has been electronically signed by: Roby Murillo MD on 09/02/2024 10:43:52
[2024-09-02 06:39] VITALS: BP 138/77; PULSE 94; RESP 18; TEMP 36.7; O2SAT 96; BMI 26.9
--- NOTE | 2024-09-02 07:49 | PC.NURSE ---
patient awake, alert and oriented. states that she had a trip and fall earlier this morning over the uneven martha/carpet. bruising noted to right eye which patient states she recalls hitting on a chair. left sided elbow/arm pain as well as left hip pain. patient able to move both extremities w/out incident. unsure of LOC. patient resting quietly in the room with call fox within reach.
--- NOTE | 2024-09-02 07:58 | ED_ITS ---
HPI - Head Injury General Chief complaint: Fall Stated complaint: fell/ multiple issues Time Seen by Provider: 09/02/24 07:56 Source: patient Mode of arrival: ambulatory Limitations: no limitations History of Present Illness ED Provider: Gabriela Yee NP HPI Narrative: Patient is a 64-year-old female who presents emergency department for evaluation. She reports yesterday evening at approximately 17:00 she was walking and she tripped over the threshold on the floor. She fell forward and struck the right side of her head onto the ground but is also experiencing pain to her left hip. Has a history of left hip replacement. She is not certain whether there was loss of consciousness but states that if it was it would only has been for MRSA sec. she denies use of anticoagulants. Today she reports having a right-sided headache, some mild nausea. Dizziness, lightheadedness, neck pain, neck stiffness, chest pain, shortness of breath, numbness or tingling of the extremities. Related Data Home Medications ?Medication ?Instructions ?Recorded ?Confirmed acetaminophen 325 mg capsule 325 mg PO QID PRN 4 12/06/23 (Tylenol) alprazolam 0.5 mg tablet mg PO PRN 12/06/23 12/06/23 clobetasol 0.05 % topical ointment 1 appl topical BID 12/06/23 12/06/23 nystatin-triamcinolone 100,000 topical DAILY 12/06/23 12/06/23 unit/gram-0.1 % topical ointment Allergies Allergy/AdvReac Type Severity Reaction Status Date / Time codeine (CODEINE) Allergy Unknown Unknown Verified 09/02/24 06:42 Review of Systems Review of Systems: Yes all other systems are reviewed and are negative [facility] Past Medical History Attestation statement: The following information was validated with the patient. Source: old records reviewed Medical History Vulval intraepithelial neoplasia with lichen sclerosus Eosinophilic fasciitis Surgical History History of bladder suspension procedure History of nephrectomy History of hip replacement Social History Social History Alcohol intake: never Patient Tobacco Use Status: Former Tobacco user Advance Directives: No Advance Directives Information Provided: No Physical Exam Vital Signs: Vital Signs: Last Vital Signs Temp 98.1 F 09/02/24 06:39 Pulse 94 09/02/24 06:39 Resp 18 09/02/24 06:39 BP 138/77 09/02/24 06:39 Pulse Ox 96 09/02/24 06:39 O2 Del Method Room Air 09/02/24 06:39 BMI result Body Mass Index 26.9 Appearance: Alert.?Oriented to person, place and time. No acute distress.?Normal affect. Head: Normocephalic Eyes: Pupils equal, round and reactive to light. EOMI. Conjunctiva and sclera normal?. Right periorbital ecchymosis. ENT: No septal hematoma, nares patent bilaterally. External auditory canal normal tympanic membrane pearly holley and intact bilaterally. Dentition normal, no fractured teeth. No lesions or lacerations of oropharynx. Uvula midline. Moist mucous membranes. No Armenta sign. Neck: Normal inspection.? Neck supple.??No palpable tenderness, step-off, deformities. CVS: Heart sounds normal. Normal heart rate and rhythm.? Pulses normal.?? Respiratory: No respiratory distress.? Lung sounds clear to auscultation bilaterally?? Abdomen: Soft and non-tender. Normoactive bowel sounds. ?? Skin: Skin warm and dry.? Normal skin color.? ?? Extremities: No lower extremity edema.? Endorsing painful AROM to left hip but near full range. Neuro: Moves all extremities spontaneously. Sensation intact bilaterally. CN II- XII intact. No focal neuro deficits. Ambulatory with steady gait Course Reevaluation(s) Reevaluation #1: CT of the head without ICH, skull fracture, cervical spine without acute fracture subluxation, facial bones without evidence of orbital fracture or otherwise acute findings. XR of the left hip/pelvis revealing no acute findings. Ambulatory with slow steady gait. At this time feels stable for [facility], reviewed symptoms of concussion, worrisome signs and symptoms that would warrant re-evaluation in the emergency department, outpatient follow-up with primary care doctor. All questions answered. Medical Decision Making Medical Decision Making MDM Narrative: Patient is a 64-year-old female presents emergency department for evaluation after a mechanical trip and fall with resultant head strike associated headache and nausea as well as left hip pain as per HPI. Overall she is well-appearing, nontoxic, afebrile. Denies any preceding symptoms prior to the fall seemed to be strictly mechanical in nature. She has a history of a prior left hip replacement, she has painful AROM in near full range motion. However will obtain XR imaging to exclude hardware fractures/misalignment. The extremities neurovascularly intact distally. On examination she does have right periorbital ecchymosis, EOMI, no signs of entrapment, no palpable step-offs or deformities of the orbit. No use of anticoagulants or known coagulation disorders. However based on mechanism of injury and physical exam I will obtain CT of the head, cervical spine, and facial bones to exclude ICH, SDH, skull fracture, cervical spine fracture/subluxation or maxillofacial fracture. She was offered antiemetic and analgesia at this time she has declined both. Differential Diagnosis Differential Diagnoses: The differential diagnosis associated with the presentation includes (See narrative above) Admission/Observation Consideration of admission/observation: Escalation of care including admission/observation considered (See narrative above) Radiology Impression Discussion of test interpretation with radiology: I have reviewed the radiologist's reading. Radiologist Impression: CT cervical spine without contrast Comparison: None provided Findings: Normal vertebral body alignment. Mild multilevel degenerative changes most pronounced at C4-5 and C5-6. No acute fractures or dislocations. No acute findings on limited view of the intracranial contents. Soft tissues of the neck are normal. No consolidation or effusion at the lung apices. IMPRESSION: No acute findings. Mild degenerative changes. CT head without contrast Comparison: None provided Findings: No intra-axial mass, midline shift, hydrocephalus, or acute hemorrhage. No significant atrophy-like change or white matter disease. There is no sinus or mastoid fluid. The orbits are unremarkable. No skull fracture. IMPRESSION: 1. No acute intracranial findings. CT maxillofacial without contrast Comparison: None provided Findings: No acute fractures. Temporomandibular joints are intact. Small retention cysts within the right maxillary sinus. Orbits and orbital contents appear normal. Visualized intracranial contents are within normal limits. No foreign bodies. IMPRESSION: No facial bone fracture. 3 view, pelvis and left hip Comparison: None provided Findings: The bony pelvis is intact. The bilateral femoral arthroplasties also appear intact. No left-sided periprosthetic fracture. The soft tissues are unremarkable. IMPRESSION: No acute findings. External Record Review External record reviewed: Outpatient record Prescription Management I considered prescription management with: Pain Medication Discharge Plan Discharge Clinical Impression: Concussion Patient Disposition: Home, Self-Care Instructions: Concussion (ED) Additional Instructions: CT of the head neck and facial bones does not show acute abnormal finding which is reassuring. Symptoms are consistent with a concussion. X-ray of the left hip does not show any abnormal findings which is reassuring. You can take ibuprofen 200 mg, 3 tablets (600mg) every 6-8 hours as needed for pain, in addition to Tylenol 500 mg, 2 tablets (1,000mg) every 4-6 hours as needed for pain, but not to exceed 3 doses daily (3,000mg).? Please follow-up with your primary care doctor, return back to emergency department any new or worsening symptoms or concerns. Prescriptions: No Action alprazolam 0.5 mg tablet PO PRN nystatin-triamcinolone 100,000-0.1 unit/gram-% ointment topical DAILY clobetasol 0.05 % ointment 1 appl topical BID acetaminophen [Tylenol] 325 mg capsule 325 mg PO QID PRN Referrals: Oswaldo Lynch MD [Primary Care Provider, Internal Medicine] Print Language: Portuguese
[2024-09-02 11:15] VITALS: BP 138/77; PULSE 94; RESP 18; TEMP 36.7; O2SAT 96
== END 2024-09-03 07:04 | disposition home or self-care (01) ==
PROVIDERS: Emergency Provider Emergency Medicine; PCP Internal Medicine
DX: S06.0X0A Concussion without loss of consciousness, initial encounter (principal); R51.9 Headache, unspecified; R11.0 Nausea; M54.2 Cervicalgia; M25.552 Pain in left hip; X58.XXXA Exposure to other specified factors, initial encounter; Y93.9 Activity, unspecified; Y92.9 Unspecified place or not applicable; Y99.8 Other external cause status; Z79.899 Other long term (current) drug therapy; Z87.891 Personal history of nicotine dependence
CPT/HCPCS: 70450; 70486; 72125; 73502; 99284

== ENCOUNTER → 2024-09-02 07:58 | Outpatient (BNV) | payer MEDICARE, BC, OTHER, SELFPAY | PROVIDERS: Emergency Provider Emergency Medicine; PCP Internal Medicine; Visit Provider Radiology Vascular & Interventional Radiology | DX: M50.321 Other cervical disc degeneration at C4-C5 level (principal); J34.1 Cyst and mucocele of nose and nasal sinus; G44.309 Post-traumatic headache, unspecified, not intractable; M25.552 Pain in left hip | CPT/HCPCS: 70450; 70486; 72125; 73502 ==

== ENCOUNTER 2025-01-22 17:01 | Emergency (ER) | payer MEDICARE, BC, OTHER, SELFPAY ==
[2025-01-22 17:22] VITALS: BP 171/79; PULSE 93; RESP 18; TEMP 36.5; O2SAT 97; BMI 27.4
--- NOTE | 2025-01-22 17:23 | ED.GENADULT ---
HPI - General Adult General Chief complaint: Abdominal Pain Stated complaint: Back Pain Time Seen by Provider: 01/22/25 21:25 Source: patient Limitations: no limitations History of Present Illness ED Provider: Jie Lopez PA-C HPI narrative: 64-year-old female with a history of prior renal cancer now status post left nephrectomy, chronic right sacroiliac joint pain, who presents with right mid back pain. Patient states she has been having right-sided mid back pain that radiates across the flank at times. Pain worse with movement. Patient does state she has had increased urinary frequency with nausea at times. Denies history of kidney stones, fever, obvious hematuria. Patient states she does lift her grandchildren frequently, she could have strained her mid back. Patient concerned given she only has 1 kidney. Related Data Home Medications ?Medication ?Instructions ?Recorded ?Confirmed acetaminophen 325 mg capsule 325 mg PO QID PRN 12/06/23 12/06/23 (Tylenol) alprazolam 0.5 mg tablet mg PO PRN 12/06/23 12/06/23 clobetasol 0.05 % topical ointment 1 appl topical BID 12/06/23 12/06/23 nystatin-triamcinolone 100,000 topical DAILY 12/06/23 12/06/23 unit/gram-0.1 % topical ointment Allergies Allergy/AdvReac Type Severity Reaction Status Date / Time codeine (CODEINE) Allergy Unknown Unknown Verified 01/22/25 17:26 Review of Systems Review of Systems: Yes all other systems are reviewed and are negative Constitutional: Constitutional: Denies fatigue and Denies fever(s) Cardiovascular: Cardiovascular: Denies chest pain and Denies dyspnea Respiratory: Respiratory: Denies dyspnea Gastrointestinal: Gastrointestinal: Denies abdominal pain, Reports nausea and Denies vomiting Genitourinary: Genitourinary: Denies hematuria, Denies dysuria, Denies flank pain and Reports urinary urgency Musculoskeletal: Musculoskeletal: Reports back pain Endocrine: Endocrine: Denies fatigue PMFSH Past Medical History Attestation statement: The following information was validated with the patient. Medical History Vulval intraepithelial neoplasia with lichen sclerosus Eosinophilic fasciitis Surgical History History of bladder suspension procedure History of nephrectomy History of hip replacement Social History Social History Alcohol intake: current Alcohol intake frequency: a few times a week Alcohol type: wine Patient Tobacco Use Status: Former Tobacco user Smoked in Last 30 Days: No Use of substances other than those prescribed or required for medical reasons: No Advance Directives: Yes Advance Directives Information Provided: No Advance Directives on File: No Do you have a plan to hurt others: No Plan Physical Exam ED Vital Signs: Vital Signs - 24 hr 01/22/25 17:22 01/22/25 19:50 01/22/25 21:49 Temperature 97.7 F 97.8 F 97.8 F Pulse Rate 93 91 91 Respiratory Rate 18 16 16 Blood Pressure 171/79 H 138/62 138/62 Pulse Oximetry 97 95 95 Oxygen Delivery Method Room Air Room Air Room Air BMI result Body Mass Index 27.4 Const Other: Alert well-appearing Orientation/consciousness: patient oriented x3 Resp Effort & Inspection: normal respiratory effort Cardio Other: Normal peripheral perfusion Back/Spine/Pelvis Other: Pain elicited right mid back with movement of torso and upper extremity Skin Other: Warm dry no rash Neuro General: patient oriented x3, gait normal, no focal motor deficits and CN's II-XI intact bilaterally Psych Other: Cooperative Course Course Course Narrative: This is a rapid medical exam performed by Bala Mars NP: Additional HPI, ROS, PE not included below will be deferred to primary provider. Patient is a 64y/o F with hx of left kindey CA s/p nephrectomy presenting with a few days of right mid back pain, then developed nausea, indigestion, urinary frequency. Denies fevers. Plan: Labs, UA Medical Decision Making Medical Decision Making MDM Narrative: 64-year-old female with a history of prior renal cancer now status post left nephrectomy, chronic right sacroiliac joint pain, who presents with right mid back pain. Patient states she has been having right-sided mid back pain that radiates across the flank at times. Pain worse with movement. Patient does state she has had increased urinary frequency with nausea at times. Denies history of kidney stones, fever, obvious hematuria. Patient states she does lift her grandchildren frequently, she could have strained her mid back. Patient concerned given she only has 1 kidney. Problem: Renal cancer, status post nephrectomy, chronic sacroiliac joint pain History: Per patient I have considered the following differential diagnoses: Pyelonephritis, renal colic, UTI, thoracic strain Plan: Screening labs including urinalysis were obtained from triage, she has no evidence of infection, she is not passing hematuria, there was no indication for imaging. Her exam is consistent with musculoskeletal strain, and she does have a mechanism. The patient uses Tylenol for pain. She is declining a prescription for a muscle relaxant. She will follow up with the primary care provider. I have independently reviewed the following tests: Labs: No leukocytosis, not anemic, no electrolyte abnormality noted, urine not infected no hematuria Differential Diagnosis Differential Diagnoses: The differential diagnosis associated with the presentation includes See MDM Admission/Observation Consideration of admission/observation: Escalation of care including admission/observation considered Not applicable Lab Data [facility] Lab Attestation statement: I reviewed the patient's lab results. 01/22/25 17:50 01/22/25 17:50 Labs: Lab Results 01/22/25 01/22/25 Range/Units 17:46 17:50 WBC 7.2 (4.8-10.8) X10*3/uL RBC 4.94 (4.20-5.50) X10*6/uL Hgb 14.0 (12.0-16.0) g/dl Hct 42.7 (37.0-47.0) % MCV 86.4 (80.0-98.0) fL MCH 28.3 (27.0-33.0) pg MCHC 32.8 (31.0-35.0) g/dl RDW 12.2 (11.0-16.0) % Plt Count 237 (160-400) X10*3/uL MPV 9.6 (9.4-12.3) fL Immature Gran % (Auto) 0.1 (0.0-0.4) % Neut % (Auto) 58.2 (45-73) % Lymph % (Auto) 31.3 (20-40) % [place] % (Auto) 7.8 (2-11) % Eos % (Auto) 1.9 (0-4) % Baso % (Auto) 0.7 (0-2) % Lymph # (Auto) 2.3 (1.2-4.9) X10*3/uL [place] # (Auto) 0.6 (0.1-1.2) X10*3/uL Eos # (Auto) 0.1 (0.0-0.4) X10*3/uL Baso # (Auto) 0.1 (0.0-0.2) X10*3/uL Abs Immat Gran (auto) 0.01 (0.00-0.03) X10*3/uL Absolute Neuts (auto) 4.2 (2.0-8.3) x10*3/uL Absolute Nucleated RBC 0.000 (0.0-0.012) X10*3/uL Nucleated RBC % (auto) 0.0 (0.0-0.2) /100WBC Sodium 139 (135-145) mmol/L Potassium 3.7 (3.3-5.1) mmol/L Chloride 106 (96-108) mmol/L Carbon Dioxide 25 (22-29) mmol/L Anion Gap 12 (12-20) BUN 11 (9-16) mg/dL Creatinine 0.52 (0.5-1.4) mg/dL Estim Creat Clear Calc 100.0 Estimated GFR > 60 Random Glucose 98 (60-115) mg/dL Calcium 9.3 (8.4-10.2) mg/dL Total Bilirubin 0.4 (0.0-1.0) mg/dL AST 27 (5-31) U/L ALT 22 (0-31) U/L Alkaline Phosphatase 105 (39-117) U/L Total Protein 7.7 (6.5-8.0) g/dL Albumin 4.8 (3.5-5.0) g/dL Urine Color Yellow Urine Appearance Clear Urine pH 6.0 (5.0-9.0) Ur Specific [place] 1.010 (1.005-1.025) Urine Protein Negative (Neg-Trace) mg/dL Urine Glucose (UA) Negative (Negative) mg/dL Urine Ketones Negative (Negative) mg/dL Urine Blood Negative (Negative) Urine Nitrite Negative (Negative) Ur Leukocyte Esterase Negative (Negative) Discharge Plan Discharge Clinical Impression: Acute thoracic myofascial strain Patient Disposition: Home, Self-Care Instructions: Muscle Strain (ED) Additional Instructions: All of your screening labs including your kidney function were normal. Your urine is not infected. Your symptoms are most consistent with mid back strain. See home care instructions. You can use 1000 mg of Tylenol every 8 hours, for your discomfort. Follow up with your primary care provider as needed. Prescriptions: No Action alprazolam 0.5 mg tablet PO PRN nystatin-triamcinolone 100,000-0.1 unit/gram-% ointment topical DAILY clobetasol 0.05 % ointment 1 appl topical BID acetaminophen [Tylenol] 325 mg capsule 325 mg PO QID PRN Interventions: ED Discharge Assessment Last Done: 01/22/25 21:49 Discharge Date/Time: 01/22/25 21:50 Print Language: Kyrgyz
--- NOTE | 2025-01-22 17:25 | ECG_ITS ---
Test Reason : ABD PAIN Blood Pressure : */* mmHG Vent. Rate : 88 BPM Atrial Rate : 88 BPM P-R Int : 182 ms QRS Dur : 84 ms QT Int : 382 ms P-R-T Axes : 47 -2 14 degrees QTcB Int : 462 ms Normal sinus rhythm Possible Left atrial enlargement Borderline ECG When compared with ECG of 31-Mar-2021 18:53, No significant change was found Referred By: Oumou Mars Electronically Signed By: ENEIDA CARRION MD
[2025-01-22 17:59] LABS: MANUAL DIFF FLAG NO
[2025-01-22 18:03] LABS: Hematocrit 42.7 % (37.0-47.0); Hemoglobin 14.0 g/dl (12.0-16.0); Imm Gran Abs Auto 0.01 X10*3/uL (0.00-0.03); Imm Gran Pct Auto 0.1 % (0.0-0.4); Lymphocytes Absolute Auto 2.3 X10*3/uL (1.2-4.9); Mean Corpuscular HGB Conc 32.8 g/dl (31.0-35.0); Mean Corpuscular Hemoglobin 28.3 pg (27.0-33.0); Mean Corpuscular Volume 86.4 fL (80.0-98.0); NRBC Abs Auto 0.000 X10*3/uL (0.0-0.012); NRBC Pct Auto 0.0 /100WBC (0.0-0.2); Platelet Count 237 X10*3/uL (160-400); Red Blood Count 4.94 X10*6/uL (4.20-5.50); White Blood Count 7.2 X10*3/uL (4.8-10.8)
[2025-01-22 18:07] LABS: Appearance Urine Clear; Glucose Urine UA Negative (Negative); PH 6.0 (5.0-9.0); Specific Gravity - Urine 1.010 (1.005-1.025)
[2025-01-22 18:18] LABS: Alanine Aminotransferase 22 U/L (0-31); Albumin Level 4.8 g/dL (3.5-5.0); Alkaline Phosphatase 105 U/L (39-117); Anion Gap 12 (12-20); Aspartate Amino Transferase 27 U/L (5-31); Blood Urea Nitrogen 11 mg/dL (9-16); Calcium 9.3 mg/dL (8.4-10.2); Carbon Dioxide 25 mmol/L (22-29); Chloride 106 mmol/L (96-108); Creatinine Clr Calc Pharmacy 100.0; Estimated Glomerular Filt Rate > 60; Potassium 3.7 mmol/L (3.3-5.1); Sodium 139 mmol/L (135-145); Total Protein 7.7 g/dL (6.5-8.0)
[2025-01-22 19:50] VITALS: BP 138/62; PULSE 91; RESP 16; TEMP 36.6; O2SAT 95
--- OUTSIDE RECORDS SUMMARY | 2025-01-22 19:50 | XMS_ITS | Encounter Summary ---
Author Organization [facility] Address [address] [place] [address] Phone Care Team Providers Care Oracle Programmer Analyst Name Role Phone Oswaldo Lynch MD Unavailable [phone] Keisha Rodarte MD Unavailable [phone] Oswaldo Lynch MD Primary Care Provider Encounter Details Date Type Department Care Team (Late st Contact Info) Description 09/01/2018 Procedure Pass [facility] Service Girl [address] [address] Social History Tobacco Use Types Packs/Day Years Used Date Smoking Tobacco: Never Smokeless Tobacco: Never Comments Unknown Sex and Gender Information Value Date Recorded Sex Assigned at Female 01/05/2021 7:25 PM EDT Legal Sex Female 10:35 PM EDT Gender Identity Female 01/05/2021 7:25 PM EDT Sexual Orientation Not on file documented as of this encounter Plan of Treatment Upcoming Encounters Date Type Department Care Team (Late st Contact Info) Description 10/31/2025 2:00 PM EDT Office Visit [facility] [address] [place] [address] Sid Rich MD, PhD [address] [place] [address] [email or web address] documented as of this encounter Visit Diagnoses Not on filedocumented in this encounter Care Teams Oracle Programmer Analyst Relationship Specialty Start Date End Date Oswaldo Lynch MD [address] [address] PCP - General 03/17/17 Oswaldo Lynch MD [address] [place] [address] Historical LMR Provider 01/01/17 2 Keisha Rodarte MD [address] [place] [address] Orth[facility] Medicine, [place] [address] [email or web address] Historical LMR Provider 01/01/17 documented as of this encounter Additional Source Comments The information contained in this document represents components of the legal health record. It is not the complete legal health record.[facility]
--- OUTSIDE RECORDS SUMMARY | 2025-01-22 19:50 | XMS_ITS | Encounter Summary ---
Author Organization [facility] Address [address] [place] [address] Phone Care Team Providers Care Cost Recorder Name Role Phone Oswaldo Lynch MD Primary Care Provider Encounter Details Date Type Department Care Team (Late Contact Info) Description 05/27/2022 Procedure Pass [facility] MR Imaging, [place] [address] [place] [address] Social History Tobacco Use Types Packs/Day Years Used Date Smoking Tobacco: Never Smokeless Tobacco: Never Comments No Sex and Gender Information Value Date Recorded Sex Assigned at Female 01/05/2021 7:25 PM EDT Legal Sex Female 10:35 PM EDT Gender Identity Female 01/05/2021 7:25 PM EDT Sexual Orientation Not on file documented as of this encounter Plan of Treatment Upcoming Encounters Date Type Department Care Team ([facility] Contact Info) Description 10/31/2025 2:00 PM EDT Office Visit [facility] [address] [address] Sid Rich MD, PhD [address] [place] [phone] [email or web address] documented as of this encounter Visit Diagnoses Not on filedocumented in this encounter Care Teams Cost Recorder Relationship Specialty Start Date End Date Oswaldo Lynch MD [address] [place] [address] PCP - General 03/17/17 documented as of this encounter Additional Source Comments The information contained in this document represents components of the legal health record. It is not the complete legal health record.[facility]
--- OUTSIDE RECORDS SUMMARY | 2025-01-22 19:50 | XMS_ITS | Encounter Summary ---
Author Organization [facility] Address [address] [place] [address] Phone Care Team Providers Care Heading And Priming Tool Setter Name Role Phone Oswaldo Lynch MD Unavailable [phone] Keisha Rodarte MD Unavailable [phone] Oswaldo Lynch MD Primary Care Provider Encounter Details Date Type Department Care Team (Late st Contact Info) Description 09/01/2018 Procedure Pass [facility] Drafter Geological [address] [address] Social History Tobacco Use Types Packs/Day Years [...] Description 10/31/2025 2:00 PM EDT Office Visit [facility] [address] [place] [address] Sid Rich MD, PhD [address] [place] [phone] [email or web address] documented as of this encounter Visit Diagnoses Not on filedocumented in this encounter Care Teams Heading And Priming Tool Setter Relationship Specialty Start Date End Date Oswaldo Lynch MD [address] [address] PCP - General 03/17/17 Oswaldo Lynch MD [address] [place] [address] Historical LMR Provider 01/01/17 2 Keisha Rodarte MD [address] [place] [address] Orthopedics [facility] Sports Medicine, [place] [address] [email or web address] Historical LMR Provider 01/01/17 documented as of this encounter Additional Source Comments The information contained in this document represents components of the legal health record. It is not the complete legal health record.[facility]
--- OUTSIDE RECORDS SUMMARY | 2025-01-22 19:50 | XMS_ITS | Encounter Summary ---
Author Organization [facility] Address [address] [place] [address] Phone Care Team Providers Care Metal Roofer Name Role Phone Oswaldo Lynch MD Primary Care Provider Encounter Details Date Type Department Care Team (Late st Contact Info) Description 12/24/2021 Procedure Pass [facility], [address] [address] Social History Tobacco Use Types Packs/Day Years [...] Description 10/31/2025 2:00 PM EDT Office Visit [facility] [address] [place] [address] Sid Rich MD, PhD [address] [place] [address] [email or web address] documented as of this encounter Visit Diagnoses Not on filedocumented in this encounter Care Teams Metal Roofer Relationship Specialty Start Date End Date Oswaldo Lynch MD [address] [place] [address] PCP - General 03/17/17 documented as of this encounter Additional Source Comments The information contained in this document represents components of the legal health record. It is not the complete legal health record.[facility]
--- OUTSIDE RECORDS SUMMARY | 2025-01-22 19:50 | XMS_ITS | Encounter Summary ---
Author Organization [facility] Address [address] [place] [address] Phone Care Team Providers Care Appliance Installer Name Role Phone Oswaldo Lynch MD Primary Care Provider Encounter Details Date Type Department Care Team (Late st Contact Info) Description 12/24/2021 Procedure Pass [facility], [address] [address] Social History Tobacco Use Types Packs/Day Years [...] Description 10/31/2025 2:00 PM EDT Office Visit [facility] [address] [place] [address] Sid Rich MD, PhD [address] [place] [address] [email or web address] documented as of this encounter Visit Diagnoses Not on filedocumented in this encounter Care Teams Appliance Installer Relationship Specialty Start Date End Date Oswaldo Lynch MD [address] [place] [address] PCP - General 03/17/17 documented as of this encounter Additional Source Comments The information contained in this document represents components of the legal health record. It is not the complete legal health record.[facility]
--- OUTSIDE RECORDS SUMMARY | 2025-01-22 19:50 | XMS_ITS | Encounter Summary ---
Author Organization [facility] Address [address] [place] [address] Phone Care Team Providers Care Superintendent Power Name Role Phone Oswaldo Lynch MD Primary Care Provider Encounter Details Date Type Department Care Team (Late Contact Info) Description 06/06/2021 Procedure Pass [facility] MR Imaging, [place] [address] [place] [address] Social History Tobacco Use Types Packs/Day Years [...] Upcoming Encounters Date Type Department Care Team ([facility] Contact Info) Description 10/31/2025 2:00 PM EDT Office Visit [facility] [address] [address] Sid Rich MD, PhD [address] [place] [address] [email or web address] documented as of this encounter Visit Diagnoses Not on filedocumented in this encounter Care Teams Superintendent Power Relationship Specialty Start Date End Date Oswaldo Lynch MD [address] [place] [address] PCP - General 03/17/17 documented as of this encounter Additional Source Comments The information contained in this document represents components of the legal health record. It is not the complete legal health record.[facility]
--- OUTSIDE RECORDS SUMMARY | 2025-01-22 19:50 | XMS_ITS | Encounter Summary ---
Author Organization [facility] Address [address] [place] [address] Phone Care Team Providers Care Booking Prizer Name Role Phone Oswaldo Lynch MD Primary Care Provider Reason for Referral * MRI/CAT Scan - Closed Specialty Diagnoses / Procedures Referred By Contac t Referred To Contact Radiology Diagnoses Eosinophilic fasciitis Procedures MRI Femur (Left) Sid Rich MD, PhD Phone: tel: fax: [email or web address] Referral ID Status Reason Start Date Expiration Date Visits Re quested Visits Authorized [id number] Closed 06/06/2021 06/06/2022 1 1 Encounter Details Date Type Department Care Team (Late st Contact Info) Description 06/06/2021 Ancillary Orders [facility] [address] [address] Sid Rich MD, PhD [address] [place] [phone] [email or web address] Eosinophilic fasciitis Social History Tobacco Use Types Packs/Day Years [...] Description 10/31/2025 2:00 PM EDT Office Visit [facility] [address] [address] Sid Rich MD, PhD [address] [place] [phone] [email or web address] documented as of this encounter Results * MRI FEMUR WITHOUT CONTRAST (LEFT) (06/06/2021 12:46 PM EDT) Anatomical Region Laterality Modality Thigh Left Magnetic Resonan ce 06/06/2021 2:10 PM EDT Impressions 06/06/2021 2:17 PM EDT No definite muscle edema or fascial edema identified to suggest myositis. Narrative 06/06/2021 2:17 PM EDT MRI FEMUR WITHOUT CONTRAST (LEFT), MRI FEMUR WITHOUT CONTRAST (RIGHT) TECHNIQUE: Multi-sequence, multi-planar MRI of the femur without intravenous contrast. COMPARISON: MRI FEMUR WITHOUT CONTRAST (LEFT) FINDINGS Bone: Bilateral total hip arthroplasties. Susceptibility obscures surrounding tissues. Degenerative changes of bilateral knees. Small moderate right and small left knee effusions. Degenerative changes of the lower lumbar spine. Soft Tissues: No definite muscle edema identified to suggest myositis. Diffuse mild muscle atrophy and fatty infiltration, similar Small moderate bilateral trochanteric bursal fluid, similar. 2 cm likely left adnexal cyst appears similar to 2020 Procedure Note Tabby Lindsay MD - 06/06/2021 MRI FEMUR WITHOUT CONTRAST (LEFT), MRI FEMUR WITHOUT CONTRAST (RIGHT) TECHNIQUE: Multi-sequence, multi-planar MRI of the femur withoutintravenous contrast. COMPARISON: MRI FEMUR WITHOUT CONTRAST (LEFT) FINDINGS Bone: Bilateral total hip arthroplasties. Susceptibility obscuressurrounding tissues. Degenerative changes of bilateral knees. Smallmoderate right and small left knee effusions. Degenerative changes of thelower lumbar spine. Soft Tissues: No definite muscle edema identified to suggest myositis.Diffuse mild muscle atrophy and fatty infiltration, similar Small moderatebilateral trochanteric bursal fluid, similar. 2 cm likely left adnexal cyst appears similar to 2020 IMPRESSION: No definite muscle edema or fascial edema identified to suggestmyositis. us Sid Rich MD, PhD IMG MR EXTREMITY Final Result documented in this encounter Visit Diagnoses Diagnosis Eosinophilic fasciitis Other disorder of muscle, ligament, and fascia Eosinophilic fasciitis Other disorder of muscle, ligament, and fascia documented in this encounter Care Teams Booking Prizer Relationship Specialty Start Date End Date Oswaldo Lynch MD [address] [place] [address] PCP - General 03/17/17 documented as of this encounter Additional Source Comments The information contained in this document represents components of the legal health record. It is not the complete legal health record.[facility]
--- OUTSIDE RECORDS SUMMARY | 2025-01-22 19:50 | XMS_ITS | Encounter Summary ---
Author Organization [facility] Address [address] [place] [address] Phone Care Team Providers Care Production Reproduction Manager Name Role Phone Oswaldo Lynch MD Primary Care Provider Encounter Details Date Type Department Care Team (Late Contact Info) Description 05/25/2021 Procedure Pass [facility] MR Imaging, [place] [address] [place] [address] Social History Tobacco Use Types Packs/Day Years [...] Upcoming Encounters Date Type Department Care Team ([facility] Contact Info) Description 10/31/2025 2:00 PM EDT Office Visit [facility] [address] [address] Sid Rich MD, PhD [address] [place] [phone] [email or web address] documented as of this encounter Visit Diagnoses Not on filedocumented in this encounter Care Teams Production Reproduction Manager Relationship Specialty Start Date End Date Oswaldo Lynch MD [address] [place] [address] PCP - General 03/17/17 documented as of this encounter Additional Source Comments The information contained in this document represents components of the legal health record. It is not the complete legal health record.[facility]
--- OUTSIDE RECORDS SUMMARY | 2025-01-22 19:51 | XMS_ITS | Encounter Summary ---
Author Organization [facility] Address [address] [place] [phone] Phone Care Team Providers Care Fiberglass Dowel Drawing Operator Name Role Phone Oswaldo Lynch MD Unavailable [phone] Keisha Rodarte MD Unavailable [phone] Oswaldo Lynch MD Primary Care Provider Encounter Details Date Type Department Care Team (Late st Contact Info) Description 12/10/2019 Procedure Pass [facility] Kier Boiler [address] [address] Social History Tobacco Use Types Packs/Day Years [...] Description 10/31/2025 2:00 PM EDT Office Visit [facility] [address] [place] [address] Sid Rich MD, PhD [address] [place] [phone] [email or web address] documented as of this encounter Visit Diagnoses Not on filedocumented in this encounter Care Teams Fiberglass Dowel Drawing Operator Relationship Specialty Start Date End Date Oswaldo Lynch MD [address] [address] PCP - General 03/17/17 Oswaldo Lynch MD [address] [place] [phone] Historical LMR Provider 01/01/17 2 Keisha Rodarte MD [address] [place] [address] [facility] [place], [place] [address] [email or web address] Historical LMR Provider 01/01/17 documented as of this encounter Additional Source Comments The information contained in this document represents components of the legal health record. It is not the complete legal health record.[facility]
--- OUTSIDE RECORDS SUMMARY | 2025-01-22 19:51 | XMS_ITS | Clinical Summary ---
Author Organization [facility] Address [address] [place] [phone] Phone Care Team Providers Care Flat Grinder Operator Name Role Phone Oswaldo Lynch MD Primary Care Provider Allergies Active Allergy Reactions Criticality Noted Date Comments Codeine Unknown 01/31/2008 Other reaction(s): OTHER hyper Medications ALPRAZolam (XANAX) 0.5 MG tablet Take 1 tablet by mouth as needed (taking 1/2 pill at night to sleep). Active traMADol (ULTRAM) 50 mg tablet Take 50 mg by mouth every 6 (six) hours as needed for pain (specific location in comments). Active omeprazole (PRILOSEC) 40 MG capsule Take 40 mg by mouth daily. Active ferrous sulfate 325 mg (65 mg confederated coos iron) tablet Take 325 mg by mouth daily with breakfast. Active cyanocobalamin , vitamin B-12, 3,[address] under the tongue. Active cholecalcifero l, vitamin D3, (VITAMIN D3 ORAL) Take by mouth. Activ e vitamin E acetate (VITAMIN E ORAL) Take by mouth. Activ e MAGNESIUM ORAL Take by mouth. Active SUMAtriptan (IMITREX) 20 mg/actuation nasal spray 1 spray by Nasal route once for 1 dose. Sumatriptan 20 mg intranasally x 1 for headache SEE ER evaluation if no relief 1 each 1 10/15/19 20 Active folic acid (FOLVITE) 1 MG tablet TAKE 5 TABLETS (5 MG TOTAL) BY MOUTH DAILY. 450 tablet 3 07/29/19 21 Active Additional Information Patient not taking.Reported on 08/10/2021 Medication-Addy e Text Occupational Therapy to evaluate and treat DX: eosinophilic fasciitis 1 Application 02/05/20 23 Active mycophenolate mofetil (CELLCEPT) 500 mg tablet TAKE 3 TABLETS (1,500 MG TOTAL) BY MOUTH 2 (TWO) TIMES A DAY. 540 tablet 08/01/19 24 Active econazole nitrate 1 % creamIndicatio ns:Tinea pedis of both feet Apply topically daily. To twice daily to both feet until rash improves 85 g 11 03/15/19 25 Active clobetasol (TEMOVATE) 0.05 % ointment APPLY TO AFFECTED AREA TWICE A DAY 60 g 2 05/10/19 25 Active clobetasol (CLOBEX) 0.05 % lotion Apply topically 2 (two) times a day. X 14 days/month 118 mL 3 10/26/19 25 Active Active Problems Problem Noted Date Diagnosed Date Eosinophilic fasciitis 06/19/2018 Encounters Date Type Department Care Team Description 10/25/2024 2:40 PM EDT Office Visit [facility] [address] [place] [address] Sid Rich MD, PhD Eosinophilic fasciitis (Primary Dx); Pruritus of skin; Xerosis cutis; Plantar warts; Seborrheic keratosis; Inflamed seborrheic keratosis from Last 3 Months Social History Tobacco Use Types Packs/Day Years Used Date Smoking Tobacco: Never Smokeless Tobacco: Never Education Answer Date Recorded Are you interested in more education? Not on chrystal e 07/09/2022 Are you concerned about learning? Not on file 07/09/2022 No 07/09/2022 No 07/09/2022 Digital Access Answer Date Recorded No 08/09/2022 No 08/09/2022 Reliable internet access at home? Not on file 08/09/2022 Device with a working camera? Not on file Comments No Sex and Gender Information Value Date Recorded Sex Assigned at Female 01/05/2021 7:25 PM EDT Legal Sex Female 10:35 PM EDT Gender Identity Female 01/05/2021 7:25 PM EDT Sexual Orientation Not on file Last Filed Vital Signs Vital Sign Reading Time Taken Comments Blood Pressure 125/73 08/10/2021 2:00 PM EDT Pulse 99 08/10/2021 12:05 PM EDT Temperature 36.8 C (98.2 F) 08/10/2021 12:05 PM EDT Respiratory Rate 16 08/10/2021 12:05 PM EDT Oxygen Saturation 98% 08/10/2021 2:10 PM EDT Inhaled Oxygen Concentration - - Weight 68 kg (150 lb) 01/06/2022 5:07 PM EDT Height 160 cm (5' 3 ) 01/06/2022 5:07 PM EDT Body Mass Index 26.57 01/06/2022 5:07 PM EDT Plan of Treatment Upcoming Encounters Date Type Department Care Team (Late st Contact Info) Description 10/31/2025 2:00 PM EDT Office Visit [facility] [address] [place] [address] Sid Rich MD, PhD [address] [place] [address] [email or web address] Health Maintenance Due Date Last Done Comments DEPRESSION SCREENING 1970 ZOSTER VACCINES (1 of 2) 1977 COLOGUARD 2003 COLONOSCOPY 2003 COLORECTAL CANCER SCREENING 2003 FIT TEST 2003 FOBT 2003 SIGMOIDOSCOPY 2003 VIRTUAL COLONOSCOPY 2003 LIPID PANEL 05/17/2013 05/17/2008 OSTEOPOROSIS SCREENING INITIAL (ONE-TIME) 2023 INFLUENZA VACCINE (#1) 2024 , 11/26/2021, 01/02/2021, Additional history exists COVID-19 VACCINE ( - season) 2024 11/05/2022, 11/30/2021, 01/09/2021, Additional history exists PNEUMOCOCCAL VACCINES (50+ years) (3 of 3 - PCV20 or PCV21) 02/22/2025 02/23/2020, 02/24/2019 MAMMOGRAM 05/25/2026 05/25/2024, 05/12, 05/18/2023, Additional history exists Adult Td,Tdap Booster 11/13/2031 11/12/2021 HEPATITIS C SCREENING Completed 06/01/2018 , 06/01/2018, 06/01/2018 SMOKING STATUS SCREENING (Once After 26 Yrs) Completed 12/24/2021 RSV VACCINE Completed 12/07/2022 HEPATITIS A VACCINES Aged Out No long er eligible based on patient's age to complete this topic HIB VACCINES Aged Out No longer eligi ble based on patient's age to complete this topic MENINGOCOCCAL VACCINES (ACWY) Aged Out No longer eligible based on patient's age to complete this topic MENINGOCOCCAL VACCINES (B) Aged Out N o longer eligible based on patient's age to complete this topic Medical Devices Implanted Type Area Electrical Lineman Device Identifier Shelf Expiration Date Model / Serial / Lot Hip Replacements Procedures Procedure Name Priority Date/Time Associated Diagnosis Comments HEPATITIS C ANTIBODY, QUALITATIVE Routine 06/01/2018 4:44 PM EDT from Last 3 Months or Most Recently Relevant to Health Maintenance Results * Hepatitis C antibody, qualitative (06/01/2018 4:44 PM EDT) HCV Nonreactive Nonreactive [facility] 06/01/2018 4:44 PM EDT 06/01/2018 7:37 PM EDT Comment:#HPCVAB ADDED AT 10: 25AM PER [id number] ON 06/02/2018 Sid Rich MD, PhD LAB BLOOD BKR ORDERABLES Reanna l Result Performing Organization Address [facility]/State/[facility] Co de Phone Number [facility] [address] [place] [phone] from Last 3 Months or Most Recently Relevant to Health Maintenance Insurance [facility] FEDERAL MEDICARE PART A & B [facility] [employer] [facility] MEDICARE SUPPLEMENT [facility] MEDICARE PART A & B [employer] MEDICARE SUPPLEMENT MEDICARE PART A & B [employer] MEDICARE SUPPLE[place] [place] [address] MEDICARE PART A & B [facility] MEDICARE SUPPLEMENT [facility] MEDICARE PART A & B [facility] MEDICARE SUPPLEMENT [place], [place] [facility] MEDICARE PART A & B [facility] MEDICARE SUPPLEMENT [facility] MEDICARE PART A & B [employer] MEDICARE SUPPLEMENT [place] [address] MEDICARE PART A & B [employer] MEDICARE SUPPLEMENT [facility] MEDICARE PART A & B [facility] MEDICARE SUPPLEMENT Care Teams Flat Grinder Operator Relationship Specialty Start Date End Date Oswaldo Lynch MD [address] [place] [phone] PCP - General 03/17/17 Additional Source Comments The information contained in this document represents components of the legal health record. It is not the complete legal health record.[facility]
--- OUTSIDE RECORDS SUMMARY | 2025-01-22 19:51 | XMS_ITS | Encounter Summary ---
Author Organization [facility] Address [address] [place] [address] Phone Care Team Providers Care Public Relations Intern Name Role Phone Oswaldo Lynch MD Primary Care Provider Encounter Details Date Type Department Care Team (Late Contact Info) Description 05/27/2022 Procedure Pass [facility] [address] [place] [address] Social History Tobacco Use Types Packs/Day Years [...] Upcoming Encounters Date Type Department Care Team ([facility] Contact Info) Description 10/31/2025 2:00 PM EDT Office Visit [facility] [address] [address] Sid Rich MD, PhD [address] [place] [phone] [email or web address] as of this encounter Visit Diagnoses Not on filedocumented in this encounter Care Teams Public Relations Intern Relationship Specialty Start Date End Date Oswaldo Lynch MD [address] [place] [phone] PCP - General 03/17/17 documented as of this encounter Additional Source Comments The information contained in this document represents components of the legal health record. It is not the complete legal health record.[facility]
--- OUTSIDE RECORDS SUMMARY | 2025-01-22 19:51 | XMS_ITS | Clinical Summary ---
Author Organization [facility] [address] [place] [address] [address] [place] [address] Phone Care Team Providers Care Dietary Director Name Role Phone Oswaldo Lynch MD Primary Care Provider Allergies Active Allergy Reactions Criticality Noted Date Comments Codeine Other 01/31/2008 hyper Shellfish Derived 08/21/2020 Medications dicyclomine (BENTYL) 10 mg capsule Take 10 mg by mouth 4 times daily (before meals and nightly). Active ALPRAZolam (XANAX) 0.25 mg tablet Take 1 Tab by mouth 3 times daily as needed for Anxiety. 1 Active hydrOXYzine HCL (ATARAX) 10 mg tabletIndicatio ns:Lichenoid dermatitis Take 1 tablet (10 mg total) by mouth at bedtime as needed for itching. 90 tablet 3 5 Active Additional Information Patient not taking.Reported on 09/04/2024 nystatin-triamc inolone (MYCOLOG II) ointment Apply a thin layer to affected area MWF 15 g 1 5 Active clobetasoL (TEMOVATE) 0.05 % ointment Apply 1 Application topically 2 (two) times a day. APPLY TO AFFECTED AREA 5 Active Bifidobacterium infantis (ALIGN, B.INFANTIS, ORAL) Take by mouth. Activ e Active Problems Problem Noted Date Diagnosed Date Bilateral leg pain 08/22/2024 Bruising tendency 08/22/2024 Chronic GERD 08/22/2024 Cough 08/22/2024 Dizziness 08/22/2024 Dyspnea 08/22/2024 Fatigue 08/22/2024 Fatty liver 08/22/2024 GI problem 08/22/2024 HLD (hyperlipidemia) 08/22/2024 IBS (irritable bowel syndrome) 08/22/2024 Disorder of sacrum 08/22/2024 S/p nephrectomy 08/22/2024 Right flank pain 08/22/2024 Nasal sore 08/22/2024 Migraines 08/22/2024 Itching 08/22/2024 UTI (urinary tract infection) 08/22/2024 Uterovaginal prolapse 08/22/2024 Umbilical hernia without obstruction or gangrene 08/22/2024 Telogen hair loss 08/22/2024 Spinal stenosis 08/22/2024 Postmenopausal bleeding 06/10/2020 Overview (05/10/2024): Last Assessment & Plan: I reviewed her ED records today including normal pelvic US with 2 mm ES, normal urine, normal CBC, CMP, negative urine culture, CT showing acute focal pancreatitis secondary to duodenitis. She was counseled that usual evaluation for PMB involves US and possible EMB. She is worried about cause and thus we performed EMB today. Procedure Note Indication for Procedure Encounter Diagnosis Name Primary? ? Postmenopausal bleeding Yes The patient was consented for an endometrial biopsy. She was placed in the lithotomy position and a bimanual exam was performed revealing aida anteverted small uterus. A sterile speculum was placed. The cervix was cleansed with betadine. A single- toothed tenaculum was placed on the anterior lip of the cervix. The uterus sounded to 7 cm in length. Two passes with a 3 mm pipelle were performed with a very scant amount to no tissue returning. This tissue was sent to pathology for further evaluation. The tenaculum was removed and the sites appeared hemostatic. The speculum was also removed. The patient tolerated the procedure well. We discussed postprocedure cramping and light bleeding. Advised to avoid anything in the vagina for three days. Advised to call with increasing pain, heavy bleeding, or fever. Pt will be informed of results when available. FCO VALVERDE MD Vulvar itching 08/08/2019 Assessment & Plan (05/25/2024 1:34 PM EDT): Very well could be related to her eosinophilic issue. I sent a yeast culture. I encouraged her to try Calmoseptine. I gave her hydroxyzine to use prn QHS. I recommended she discuss whether restarting some of her biologic meds would help her whole body symptoms. 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 Well controlled on exam. I reviewed areas of application and amount of medication to use. She will use nightly. Continue daily skin barrier and VSC guidelines. 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 Well controlled currently. I reviewed the importance of regular maintenance topical steroid use to prevent symptoms, further scarring, and squamous cell cancer of the vulva. I also explained the importance of regular follow up to ensure she has no evidence of precancerous or cancerous changes and that she is not having side effects from her medication. I reviewed areas of application and amount of medication to use. I encouraged her not to use clobetasol and rather to try to use the triamcinolone nightly to prevent symptoms. She voiced understanding and agreed. She was reassured that the area she was feeling was a normal anatomical structure. Fasciitis with eosinophilia syndrome 06/19/2018 Cystocele, midline 03/09/2011 Osteoarthritis of lumbar spine 04/07/2009 Tinea corporis 05/19/2007 Malignant neoplasm of kidney excluding renal pelvis (CMS/HCC V24, CMS/HCC V28) 01/24/2006 Overview (05/10/2024): S/p nephectomy 2005 on the left; no recurrence. Dr. Fuchs did it. IMO update Surgical History Surgery Date Site/Laterality Comments ESOPHAGOGASTRODUODENOSCOPY 07/25/08 PROCEDURE: ME EGD TRANSORAL BIOPSY SINGLE/MULTIPLE; COMMENT: Nl esophagus, Nl stomach-bx:mild vascular congestion, Nl duodenum-bx:Nl COLONOSCOPY 07/25/08 PROCEDURE: ME COLONOSCOPY STOMA DX INCLUDING COLLJ SPEC SPX; COMMENT: Up to cecum, good preparation, normal colon exam OTHER SURGICAL HISTORY PROCEDURE: ME LIG/TRNSXJ FLP TUBE ABDL/VAG APPR UNI/BI NEPHRECTOMY 01/24/06 PROCEDURE: HISTORICAL NEPHRECTOMY; COMMENT: left kidney for renal carcinoma STEREOTACTIC BREAST BIOPSY 2010 PROCEDURE: STEREOTACTIC BREAST BIOPSY; COMMENT: benign OTHER SURGICAL HISTORY PROCEDURE: ME INSJ MESH/PROSTH PELVIC FLOOR DEFECT EACH SITE BREAST BIOPSY Right PROCEDURE: BX BREAST; PERC NEEDLE CORE W/IMAG GUID; COMMENT: rt bx neg ESOPHAGOGASTRODUODENOSCOPY 06/30/2020 ESOPHAGOGASTRODUODENOSCOPY 03/19/2018 ESOPHAGOGASTRODUODENOSCOPY 12/06/2013 EUS OTHER SURGICAL HISTORY 04/25/2018 capsule endoscopy: normal COLONOSCOPY 07/01/2017 10 yr Medical History Medical History Date Comments Malignant neoplasm of kidney , except pelvis 01/24/2006 DX:Malignant neoplasm of kid aleksandra, except pelvis; COMMENT: S/p nephectomy 2006 on the left; no recurrence. Dr. Fuchs did it. Anemia, unspecified DX:Anemia, u nspecified DDD (degenerative disc disease), lumbar DX:DDD (degenerative disc disease), lumbar Malignant neoplasm of kidney , except pelvis 01/24/2006 DX:Malignant neoplasm of kid aleksandra, except pelvis Osteoarthritis of lumbar spine 04/07/2009 D X:Osteoarthritis of lumbar spine Other specified personal his tory presenting hazards to health(V15.89) DX:Other specifie d personal history presenting hazards to health(V15.89) Fatty liver 08/22/2024 Family History Medical History Relation Name Comments Emphysema Father Lung cancer Maternal Grandmother father 60s Melanoma Mother maternal grandf ather Breast cancer Paternal Grandmother Ovarian cancer Neg Hx Pancreatic cancer Neg Hx Prostate cancer Neg Hx Uterine cancer Neg Hx Relation Name Status Comments Father Maternal Grandmother Mother Paternal Grandmother Social History Tobacco Use Types Packs/Day Years Used Date Smoking Tobacco: Former Cigarettes 0 Q uit: 01/05/1995 Smokeless Tobacco: Never Tobacco Cessation:Counseling Given: Not Answered Alcohol Use Standard Drinks/Week Comments Yes 0 (1 standard drink = 0.6 oz pur e alcohol) soicially Housing Instability Answer Date Recorde d Are you worried that in the next 2 months you may not have stable housing? No 05/21/2024 Food Access & Nutrition Answer Date Rec orded Do you have access to a vari ety of food including fruits and vegetables? Yes 05/21/2024 Access to Healthcare Answer Date Record ed Within the last 3 months, ho w many times did you visit the emergency department for your medical care? 0 05/21/2024 Health Literacy Answer Date Recorded How often do you need to hav e someone help you when you read instructions, pamphlets, or other written material from your doctor or pharmacy? Never 05/21/2024 Caregiver: How often do you need to have someone help you when you read instructions, pamphlets, or other written material from your doctor or pharmacy? Not on file 05/21/2024 Financial Risk Answer Date Recorded How hard is it for you to pa y for the very basics like food, housing, medical care, and air conditioning / heating? Not very hard 05/21/2024 Transportation Answer Date Recorded Has the lack of transportati on kept you from meetings, work, or from getting things needed for daily living? No Has the lack of transportati on kept you from medical appointments or from getting medications? No 05/21/2024 Social Isolation Answer Date Recorded How often do you feel lonely or isolated from th ose around you? Never 05/21/2024 Food Risk Answer Date Recorded Within the past 12 months we worried whether our food would run out before we got money to buy more. Never true 05/21/2024 Within the past 12 months th e food we bought just didn't last and we didn't have money to get more. Never true 05/21/2024 Dependent Care Answer Date Recorded Do you need help finding or paying for care for your loved ones. For example, child day care teacher or elderly care for an older adult? No 05/21/2024 Education Answer Date Recorded Do you think completing more education or training, like finishing a GED, going to college, or learning a trade, would be helpful for you? N/A 05/21/2024 Employment and Income Answer Date Recor ded During the last four weeks, have you been actively looking for work? No 05/21/2024 Living Situation Answer Date Recorded What is your living situation? Unrecognized valu e 05/21/2024 Comments No Sex and Gender Information Value Date Recorded Sex Assigned at Female 09/05/2024 9:38 AM EDT Legal Sex Female 10:44 AM EST Gender Identity Female 09/05/2024 9:38 AM EDT Sexual Orientation Straight 09/05/2024 9: 38 AM EDT Obstetrics History Para Term AB IAB SAB Ectopic Multiple Livin g Live Births 3 3 3 3 3 Date Outcome GA Total Labor Labor/2nd/3rd Weight Sex Type Anes PTL Maureen A1 A5 Name Clin Term Living Term Living Term Living Last Filed Vital Signs Vital Sign Reading Time Taken Comments Blood Pressure 120/72 05/25/2024 1:36 PM EDT Pulse 75 05/25/2024 1:05 PM EDT Temperature - - Respiratory Rate 13 05/25/2024 1:05 PM EDT Oxygen Saturation - - Inhaled Oxygen Concentration - - Weight 69.8 kg (153 lb 12.8 oz) 09/04/2024 8:00 AM EDT Height 160 cm (5' 3 ) 09/04/2024 8:00 AM EDT Body Mass Index 27.24 09/04/2024 8:00 AM EDT Plan of Treatment Health Maintenance Due Date Last Done Comments Cholesterol Screening (Lipid Panel) 02/20/2022 05/17/2008 Medicare Annual Wellness Visit 02/20/2022 Osteoporosis Screening (Bone Density Screening) 02/20/2022 Falls Risk Assessment 2023 COVID-19 Vaccine ( season) 2024 11/05/2022, 11/30/2021, 01/09/2021, Additional history exists Influenza Vaccine (#1) 2024 , 11/26/2021, 01/02/2021, Additional history exists Zoster Vaccines (2 of 2) 02/01/2025 12/07/2024 Pneumococcal Vaccine: 50+ Years (3 of 3 - PCV20 or PCV21) 02/22/2025 02/23/2020, 02/24/2019 Social Influencers of Health Screening 05/21/2025 05/21/2024 Cervical Cancer Screening: HPV 08/21/2025 08/21/2020 Breast Cancer Screening 05/25/2026 05/26/19, 05/18/2023, 05/18/2023, Additional history exists DTaP,Tdap,and Td Vaccines (2 - Td or Tdap) 11/13/2031 11/12/2021 Colorectal Cancer Screening: Colonoscopy 10/10/2034 10/10/2024, 07/25/2008 Hepatitis C Screening Completed 06/01/2018 RSV Immunization Adult Patients Completed 12/07/2022 Depression Screening Completed 05/21/2024 HIB Vaccines Aged Out No longer eligi ble based on patient's age to complete this topic HPV Vaccines Aged Out No longer eligi ble based on patient's age to complete this topic Hepatitis A Vaccines Aged Out No long er eligible based on patient's age to complete this topic Hepatitis B Vaccines Aged Out No long er eligible based on patient's age to complete this topic IPV Vaccines Aged Out No longer eligi ble based on patient's age to complete this topic MMR Vaccines Aged Out No longer eligi ble based on patient's age to complete this topic Meningococcal ACWY Vaccine Aged Out N o longer eligible based on patient's age to complete this topic Meningococcal B Vaccine Aged Out No l onger eligible based on patient's age to complete this topic RSV Immunization Patients Under 20 months Aged Out No longer eligible based on patient's age to complete this topic Varicella Vaccines Aged Out No longer eligible based on patient's age to complete this topic Procedures Procedure Name Priority Date/Time Associated Diagnosis Comments COLONOSCOPY Routine 10/10/2024 9:17 AM EDT MG MAMMO DIGITAL SCREENING W JAMAL BILAT Routine 05/25/2024 9:17 AM EDT Encounter for screening mammogram for breast cancer HM HPV Routine 08/21/2020 LIPID PANEL Routine 05/17/2008 from Last 3 Months or Most Recently Relevant to Health Maintenance Results * COLONOSCOPY (10/10/2024 9:17 AM EDT) Anatomical Region Laterality Modality Endoscopy us Historical Provider GI~PROCEDURE ORDERABLES F inal Result * MG Mammo Digital Screening w Jmaal bilat (05/25/2024 9:17 AM EDT) Anatomical Region Laterality Modality Breast Bilateral Mammography 05/25/2024 12:1 2 PM EDT Impressions 05/25/2024 12:15 PM EDT BILATERAL BREASTS: Benign, no evidence of malignancy. Normal interval follow-up is recommended in 12 months. BREAST DENSITY: B - There are scattered areas of fibroglandular density. BI-RADS CATEGORY: 2 - BENIGN RECOMMENDATION: Screening bilateral mammogram is recommended in 1 year. Mammo Location: [facility], [address] [place] [address], [id number], . -------- FINAL REPORT -------- Dictated By: Phong Daniel Dictated Date: 05/25/2024 12:12 ET Assigned Physician: Phong Daniel Reviewed and Electronically Signed By: Phong Daniel Signed Date: 05/25/2024 12:15 ET Workstation ID: [id number] Transcribed By: Self Edit Transcribed Date: 05/25/2024 12:12 ET Narrative 05/25/2024 12:15 PM EDT STUDY: Bilateral screening mammography with tomosynthesis and CAD TECHNIQUE: Bilateral full-field digital screening mammography is obtained and read in conjunction with computer-aided detection. Tomosynthesis as well as 2-D C view imaging were obtained. COMPARISON: Comparison made to multiple prior, most recent May 18, 2023, and most remote April 01, 2015. RIGHT BREAST: Tissue marker from previous needle core biopsy. No significant masses, suspicious calcifications or other abnormalities are seen. LEFT BREAST: No significant masses, suspicious calcifications or other abnormalities are seen. Procedure Note Phong Daniel MD - 05/25/2024 STUDY: Bilateral screening mammography with tomosynthesis and CAD TECHNIQUE: Bilateral full-field digital screening mammography is obtainedand read in conjunction with computer-aided detection. Tomosynthesis aswell as 2-D C view imaging were obtained. COMPARISON: Comparison made to multiple prior, most recent May 18, 2023,and most remote April 01, 2015. RIGHT BREAST: Tissue marker from previous needle core biopsy. Nosignificant masses, suspicious calcifications or other abnormalities areseen. LEFT BREAST: No significant masses, suspicious calcifications or otherabnormalities are seen. IMPRESSION: BILATERAL BREASTS: Benign, no evidence of malignancy. Normal intervalfollow-up is recommended in 12 months. BREAST DENSITY: B - There are scattered areas of fibroglandular density. BI-RADS CATEGORY: 2 - BENIGN RECOMMENDATION: Screening bilateral mammogram is recommended in 1 year. Mammo Location: [facility], [address] [place] [address], [id number], . -------- FINAL REPORT -------- Dictated By: Phong Daniel Dictated Date: 05/25/2024 12:12 ET Assigned Physician: Phong Daniel Reviewed and Electronically Signed By: Phong Daniel Signed Date: 05/25/2024 12:15 ET Workstation ID: [id number] Transcribed By: Self Edit Transcribed Date: 05/25/2024 12:12 ET Oswaldo Lynch MD IMG BI PROCEDURES Final Res ult * Cervical Cancer Screening: HPV (08/21/2020) Health system Cervical Cancer Screening: HPV negative,a bstracted Historical Provider HEALTH MAINTENANCE Final Result * Lipid panel (05/17/2008) [facility] LDL/HDL Ratio 3 0 - 4 Triglycerides 52 0 - 150 mg/dL Cholesterol 164 0 - 200 mg/dL HDL 58 >=40 mg/dL LDL Cholesterol 96 0 - 100 mg/dL Blood Venous blood specimen / Unknown Historical Provider LAB BLOOD ORDERABLES Reanna l Result from Last 3 Months or Most Recently Relevant to Health Maintenance Insurance MEDICARE [facility] Care Teams Dietary Director Relationship Specialty Start Date End Date Oswaldo Lynch MD [address] [facility] [address] [place], [place] PCP - General Internal Medicine 03/08/11
--- OUTSIDE RECORDS SUMMARY | 2025-01-22 19:51 | XMS_ITS | Encounter Summary ---
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 [address] [address] Social History Tobacco Use Types Packs/Day Years [...] Description 10/31/2025 2:00 PM EDT Office Visit [facility] [address] [place] [id number] Sid Rich MD, PhD [address] [place] [email or web address] documented as of this encounter Visit Diagnoses Not on filedocumented in this encounter Care Teams Bench Assembly Inspector Relationship Specialty Start Date End Date Oswaldo Lynch MD [address] [address] PCP - General 03/17/17 Oswaldo Lynch MD [address] [place] [id number] Historical LMR Provider 01/01/17 2 Keisha Rodarte MD [address] [place] [address] Orthopedics [facility] Medicine, [place] [address] [email or web address] Historical LMR Provider 01/01/17 documented as of this encounter Additional Source Comments The information contained in this document represents components of the legal health record. It is not the complete legal health record.[facility]
--- OUTSIDE RECORDS SUMMARY | 2025-01-22 19:51 | XMS_ITS | Patient Health Record ---
Author Organization [facility] Address [address] [place] [address] Care Team Providers Care National Expansion Recruiter Name Role Phone Oswaldo Lynch MD Primary Care Provider Judi Donovan Unavailable [phone] Allergies Allergen (clinical drug ingredient) Drug/Non Drug Allergy documented on EMR Reaction Allergy Type Onset Date Status codeine Codeine Unknown Drug Allergy Active Reason For Referral No Information Medications Medication SIG (Take, Route, Frequency, Duration) Notes Start Date End Date Status Tolnaftate 1 % 1 application to affected area Externally Twice a day; Duration: 30 days 10/28/2016 Active Ciclopirox Olamine 0.77% external Apply to effected areas twice a day; Duration: 30 days 05/01/2015 Not-Takin g Econazole Nitrate 1 % Externally Not-Taking LamISIL AT 1 % 1 application to affected area Externally Twice a day to affected areas on feet; Duration: 30 days 09/15/2016 Active Problems No Known Problems Plan Of Treatment Pending Test Test Name Order Date [id number] Destruction, 03-2705/01/2015 [id number] Destruction, 03-2709/15/2016 [id number] Destruction, 03-2710/20/2016 Insurance Providers Payer Name Payer Address Payer Phone Subscriber Number Group Number Insured Name Patient Relationship to Insured Coverage Start Date Coverage End Date [facility] [address] [place] [address] [id number] Francisco Javier Chung Spouse - patient is the spouse of the insured Medical (General) History Medical History History ICD Code Back,Hip,and Knee pain Arthritis Cancer Surgical History Surgery Date(Month/Year) kidney surgery 2005 bladder surgery 2011 tubal ligation 1994
[2025-01-22 21:49] VITALS: BP 138/62; PULSE 91; RESP 16; TEMP 36.6; O2SAT 95
== END 2025-01-22 21:50 | disposition home or self-care (01) ==
PROVIDERS: Registered Nurse Emergency; Emergency Provider Emergency Medicine; PCP Internal Medicine
DX: S29.012A Strain of muscle and tendon of back wall of thorax, initial encounter (principal); X58.XXXA Exposure to other specified factors, initial encounter; Y93.9 Activity, unspecified; Y92.9 Unspecified place or not applicable; R10.9 Unspecified abdominal pain; R94.31 Abnormal electrocardiogram [ECG] [EKG]; Z85.528 Personal history of other malignant neoplasm of kidney; Z98.890 Other specified postprocedural states; Z87.891 Personal history of nicotine dependence
CPT/HCPCS: 36415; 80053; 81003; 85025; 93005; 99283; 99284

== ENCOUNTER → 2025-01-22 17:25 | Outpatient (BNV) | payer MEDICARE, BC, OTHER, SELFPAY | PROVIDERS: Emergency Provider Emergency Medicine; PCP Internal Medicine; Visit Provider Internal Medicine Cardiovascular Disease | DX: R10.9 Unspecified abdominal pain (principal) | CPT/HCPCS: 93010 ==

== ENCOUNTER 2025-02-22 08:42 | Outpatient (REF) | payer MEDICARE, BC, OTHER, SELFPAY ==
--- NOTE | ~2025-02-22 | XR_ITS ---
EXAMINATION: XR ABDOMEN KUB CLINICAL INDICATION: R10.30 - Lower abdominal pain, unspecified COMPARISON: Correlated to CT abdomen pelvis dated May 31, 2020. TECHNIQUE: AP view of the abdomen. FINDINGS: Gas throughout the nondilated intestine. No active levels. Stool within the right and left hemicolon. No gross calcifications overlapping the kidney shadows. Multilevel thoracolumbar spondylosis. Metallic prosthesis both hips. XR/XR KUB IMPRESSION: No intestinal obstruction pattern. Electronically signed by: Antony Lopez MD 02/22/2025 10:03 AM LEONEL NICHOLS
== END 2025-02-22 08:43 | disposition home or self-care (01) ==
LOC: HO.HMGCX 08:42
PROVIDERS: PCP Internal Medicine; Visit Provider Physician Assistant
DX: R10.30 Lower abdominal pain, unspecified (principal); R00.0 Tachycardia, unspecified
CPT/HCPCS: 74018; 81003; 99202

== ENCOUNTER 2025-02-22 08:42 | Outpatient (AMB) | payer MEDICARE, BC, OTHER, SELFPAY ==
[2025-02-22 09:00] VITALS: BP 116/70; PULSE 115; TEMP 36.6; O2SAT 98; BMI 26.9
--- NOTE | 2025-02-22 09:00 | MHC.OFFWIV ---
Intake Vital Signs 02/22/25 09:00 Height 5 ft 3 in Weight 152 lb BMI 26.9 BP 116/70 Blood Pressure Location Lt brachial Position Sitting Pulse 115 H Pulse Source Pulse Oximeter Temp 97.9 F Temp Source Oral Pulse Oximetry (%) 98 Oxygen Delivery Method Room Air Intake Visit Reasons: EP Lower pain in abdomen Intake Note: pt presents with lower abdominal pain and cramping, urine frequency overnight for 2 days Patient Tobacco Use Status: Former Tobacco user Allergies scallops Allergy (Mild, Verified 02/22/25 09:09) Nausea codeine (CODEINE) Adverse Reaction (Mild, Verified 02/22/25 09:09) hyperactivity Do you need a note to return to daycare/school/sports/work: No HPI HPI Comments History of Present Illness Details History of Present Illness - The patient is a 64 year old female presenting with severe abdominal cramping. - The symptoms began last night and have been waking her every two hours. - She describes the pain as a constant 5/10 in severity, located in her lower abdomen, and exacerbated by movement such as getting up, sitting, and standing. - Associated symptoms include mild nausea and a reduced appetite. - She reports a low-grade fever of 99?F last night, but she is afebrile today. - She initially suspected a bladder issue but noted no blood in her urine, and then considered constipation after having a lot of cheese 2 days ago. - Her bowel movements have changed from her normal pattern, consisting of small, hard stools this morning. - She has also noted pressure in her rectal area and a small amount of bright red blood, which she attributes to wiping. - Her pertinent past medical history includes nephrectomy (kidney ca), a history of a bladder prolapse which has recurred after a prior surgical repair, eosinophilic fasciitis, and lichen sclerosus. - She denies any history of diverticulitis or diverticulosis and reports that her previous colonoscopies have been normal. She is due in 2 years. Physical Exam General: Cooperative, healthy appearing, comfortable, no acute distress and well developed Orientation: Patient oriented x3 Limitations: No limitations Head: Normal to inspection Ears: Hearing grossly normal bilaterally Nose: Normal External nose present Face and sinus: Normal facial exam Eyes: Appearance normal, both eyes and all related structures Neck: Normal visual inspection and Yes full ROM Respiratory: Normal respiratory effort and able to speak in complete sentences. GI: normoactive BS, soft, negative mcburneys, negative murphys, slight TTP with deep palpation in lower central abdomen. Skin: No rashes or lesions noted Neuro: Patient oriented x3, gait normal Extremities: Normal to inspection, moving all extremities normally Review of Systems - Constitutional: Reports a subjective fever last night and fatigue secondary to pain-induced insomnia. - Gastrointestinal: Reports severe, constant lower abdominal cramping rated 5/10, mild nausea, and reduced appetite. - Reports constipation with small, hard stools and a small amount of bright red blood per rectum. - Denies vomiting or diarrhea. - Genitourinary: Reports itching secondary to lichen sclerosus. - Denies hematuria or dysuria. - Musculoskeletal: Denies low back pain. All systems reviewed and are unremarkable except as noted in HPI [facility] Medical History Vulval intraepithelial neoplasia with lichen sclerosus Eosinophilic fasciitis Surgical History History of bladder suspension procedure History of nephrectomy History of hip replacement Social History Alcohol intake: current Alcohol intake frequency: a few times a week Alcohol type: wine Patient Tobacco Use Status: Former Tobacco user Physical Exam Vital Signs: Last Vital Signs Temp 97.9 F 02/22/25 09:00 Pulse 115 H 02/22/25 09:00 BP 116/70 02/22/25 09:00 Pulse Ox 98 02/22/25 09:00 Oxygen Delivery Method Room Air 02/22/25 09:00 BMI result Body Mass Index 26.9 Assessment & Plan Assessment & Plan (1) Lower abdominal pain: Code(s): R10.30 - Lower abdominal pain, unspecified Plan: Assessment and Plan Lower abdominal pain likely 2/2 constipation The patient's presentation of severe, constant lower abdominal pain with suprapubic tenderness is most consistent with constipation, especially given her recent dietary intake and abnormal bowel movements. A urinary tract infection is less likely given a normal urinalysis, and appendicitis is unlikely based on the physical exam. An abdominal X-ray will be ordered to confirm significant stool burden. The plan is to start MiraLax to facilitate a bowel movement. The patient is tachycardic with an elevated heart rate from her baseline, and urinalysis shows ketones and trace protein, suggesting mild dehydration. This is likely secondary to her poor oral intake. The plan is to increase oral fluid intake, which will also help with the constipation. She was advised to ensure her heart rate decreases to below 100 bpm with rehydration. The patient has been advised to go to the emergency room for further evaluation with a scan if the pain worsens, fevers develop or she does not produce a bowel movement in the next few days. Orders: Orders XR KUB Today R10.30 - Lower abdominal pain, unspecified Coding Level of Care Code New Pt Level 4 (90237) Diagnoses Lower abdominal pain R10.30
== END 2025-02-22 09:40 | disposition home or self-care (01) ==
PROVIDERS: PCP Internal Medicine; Visit Provider Physician Assistant
DX: Z13.9 Encounter for screening, unspecified (principal); R10.30 Lower abdominal pain, unspecified

== ENCOUNTER → 2025-02-22 09:44 | Outpatient (BNV) | payer MEDICARE, BC, OTHER, SELFPAY | PROVIDERS: PCP Internal Medicine; Visit Provider Radiology Diagnostic Radiology | DX: R10.30 Lower abdominal pain, unspecified (principal) | CPT/HCPCS: 74018 ==